=== PATIENT | female | born 1995 | race Caucasian/White ===

== ENCOUNTER 2023-08-02 12:53 | Inpatient (IN) | payer BC, OTHER, SELFPAY ==
[2023-08-02 12:58] VITALS: BP 119/78; PULSE 107; RESP 16; TEMP 36.9; O2SAT 100; BMI 37.5
--- NOTE | 2023-08-02 13:10 | CRLHL7_ITS ---
For Patients: As a result of the Century Cures Act, medical imaging exams and procedure reports are released immediately into your electronic medical record. You may view this report before your referring provider. If you have questions, please contact your health care provider. INDICATION: Pelvic Pain TECHNIQUE: Ultrasound pelvis transabdominal and transvaginal for better assessment or to better visualize the endometrium. Real-time sonographic images with spectral and color Doppler imaging of the ovaries were obtained. COMPARISON: None FINDINGS: Uterus: 7.7 x 5.0 x 5.2 cm. Normal echotexture of the myometrium. No masses. Endometrium: Transvaginal imaging was performed to better evaluate the endometrium. Endometrial thickness measures 7 mm. There is demonstration of an IUD in the lower uterine segment. Right ovary measures 4.4 x 3.2 x 3.5 cm and left ovary measures 7.1 x 4.3 x 4.0 cm. There is demonstration of a questionable mass adjacent to the uterine fundus and right adnexa. There is internal vascularity. Normal arterial and venous blood flow is demonstrated in both ovaries. Cul-de-sac: Minimal free fluid. IMPRESSION: Malpositioned IUD within the lower uterine segment. Demonstration of somewhat ill-defined right adnexal/periuterine mass/complex fluid collection for which additional follow-up with contrast-enhanced CT may be useful for improved characterization. Dictated by Rodrigo Mcgill MD @ 08/02/2023 2:58:06 PM (Electronically Signed)
--- NOTE | 2023-08-02 13:16 | ED.GENADULT ---
HPI - General Adult General Chief complaint: Abdominal Pain Stated complaint: From urgent care, need imaging Time Seen by Provider: 08/02/23 12:54 Source: patient Mode of arrival: ambulatory Limitations: no limitations History of Present Illness HPI narrative: 27-year-old female with history of MS and fibromyalgia presents with abdominal pain. Patient states that approximately 1 month ago she had similar symptoms of lower abdominal pain. She states that she was treated for which she believes was PID with doxy and Flagyl. She states that her pain did resolve however 2 days ago her pain returned. She describes it as a lower abdominal pain bilaterally without radiates up and into the entire abdomen. Movement makes it worse. Nothing seems to make it better. She does complain of increased urinary frequency and dysuria. She is currently menstruating. She has a ParaGard in place. She denies any changes to her bowel movements. She is sexually active with 1 sexual partner in states that she was tested for STDs 1 month ago and that was all negative. She denies any vaginal discharge. She does not in dorsal vomiting or nausea. She denies fevers or chills. States that her appetite is slightly less than normal but is still eating daily. Patient was seen in the urgent care today and white blood cell count came back elevated at just above 20,000. Chemistries were unremarkable, UA positive for blood which is expected given her current menstruation. Patient was sent to the ER for further imaging. Patient is on multiple psychiatric medications including Abilify, dextroamphetamine-amphetamine, hydroxyzine, prazosin, pregabalin, topiramate, venlafaxine. She is also on baclofen. She denies any intra-abdominal surgeries in the past. Related Data Home Medications Medication Instructions Recorded Confirmed aripiprazole 10 mg tablet 10 mg PO DAILY 08/02/23 08/02/23 baclofen 10 mg tablet 10 mg PO 3XD 08/02/23 08/02/23 dextroamphetamine-amphetamine 10 1 tab PO BID 08/02/23 08/02/23 mg tablet hydroxyzine pamoate 50 mg capsule 50 mg PO BID PRN 08/02/23 08/02/23 prazosin 2 mg capsule mg PO 08/02/23 08/02/23 pregabalin 200 mg capsule 200 mg PO BID 08/02/23 08/02/23 topiramate 50 mg tablet 50 mg PO 3XD 08/02/23 08/02/23 venlafaxine 150 mg 300 mg PO DAILY 08/02/23 08/02/23 capsule,extended release 24 hr venlafaxine 75 mg capsule,extended 75 mg PO DAILY 08/02/23 08/02/23 release 24 hr Allergies Allergy/AdvReac Type Severity Reaction Status Date / Time atomoxetine [From Strattera] Allergy Severe Verified 08/02/23 11:40 tetanus and diphtheria Allergy Severe Numbness Verified 08/02/23 11:40 toxoids Review of Systems Status of ROS: Reports: 10 or more systems reviewed and unremarkable except as noted in History and below [facility] Medical History Dysuria ?R30.0 - Dysuria (ICD-10) Abdominal pain ?R10.9 - Unspecified abdominal pain (ICD-10) Social History Non-prescribed substance use: denies use Exam Narrative: Exam Narrative: Obese patient in no acute distress. Alert and oriented x3. Answers questions appropriately. Mood and affect are appropriate. Thoughts are goal oriented and rational. No tangential or magical thinking noted. Patient speaks in full sentences without needing to catch her breath. HEENT: Normocephalic atraumatic. Pupils are equally round reactive to light. Extraocular muscles are intact. Conjunctivae are moist without any icterus noted. Moist mucous membranes. Posterior pharynx is normal. Neck is soft without any lymphadenopathy or thyromegaly. No masses are appreciated. Cardiovascular: Heart is regular rate and rhythm S1 and S2 are present without any murmurs. Lungs: Clear to auscultation bilaterally no wheezes rhonchi or rales are appreciated. Patient takes deep breaths without any discomfort. Abdomen: Technically difficult abdominal exam as patient moans in discomfort with just minimal light touch to the abdominal wall. She can be distracted. Deeper palpation does not reveal what appears to be worsening pain. I do not appreciate any masses. She complains of discomfort with any touch to any area of the abdomen. However, when I ask her to point to where she thinks the worst pain is she points to the suprapubic area and bilateral lower quadrants. She has normal bowel sounds. There is no peritoneal signs, the abdominal wall is not rigid or firm. Extremities: Bilateral lower extremities are without edema. Normal DP and PT pulses. Skin: Well perfused without any obvious rashes. Const: Vital Signs, click to edit/add: Vital Signs - 24 hr 08/02/23 12:58 Temperature 98.4 F Pulse Rate [Right Pulse Oximeter] 107 H Respiratory Rate 16 Blood Pressure [Ri ght Upper Arm] 119/78 Pulse Oximetry 100 Oxygen Delivery Me thod Room Air Course Course ED Course: Reviewed her CBC, chemistries and UA. Labs added included a CRP, lipase, urine test, urine culture. CRP was quite elevated. Remainder of lab work was unremarkable. Pelvic ultrasound was also ordered. This showed an ill-defined right adnexal mass. Therefore we did proceed with a CT scan. CT scan did show a probable abscess related to pelvic inflammatory disease. Did discuss the case with Dr. Bright who recommended a wet prep, repeat GC chlamydia now alert and admission for IV and doxycycline, Rocephin and Flagyl. Wet prep was obtained and sent to lab. Pupil at this time waiting for a round dirty urine sample from the patient to sent for GC/chlamydia. We did go ahead and start IV fluids and patient will be admitted at this time. Vital Signs Vital signs: Initial Vital Signs Temperature 98.4 F 08/02/23 12:58 Temperature Source Temporal Artery Scan 08/02/23 12:58 Pulse Rate 107 H 08/02/23 12:58 Pulse Rhythm Regular 08/02/23 12:58 Pulse Strength 3+ Normal 08/02/23 12:58 Respiratory Rate 16 08/02/23 12:58 Blood Pressure 119/78 08/02/23 12:58 Blood Pressure Mean 91 08/02/23 12:58 Blood Pressure Position Supine 08/02/23 12:58 Pulse Oximetry 100 08/02/23 12:58 Oxygen Delivery Method Room Air 08/02/23 12:58 Vital Signs Temperature 98.4 F 08/02/23 12:58 Pulse Rate 107 H 08/02/23 12:58 Respiratory Rate 16 08/02/23 12:58 Blood Pressure 119/78 08/02/23 12:58 Pulse Oximetry 100 08/02/23 12:58 Oxygen Delivery Method Room Air 08/02/23 12:58 Temperature 98.4 F 08/02/23 12:58 Pulse Rate 107 H 08/02/23 12:58 Respiratory Rate 16 08/02/23 12:58 Blood Pressure 119/78 08/02/23 12:58 Pulse Oximetry 100 08/02/23 12:58 Oxygen Delivery Method Room Air 08/02/23 12:58 Medical Decision Making MDM Narrative Medical decision making narrative: 27-year-old female with a potential Tubo-ovarian abscess. Patient will be admitted for management at this time. Lab Data Lab results reviewed: Yes I reviewed the patient's lab results Labs: Lab Results 08/02/23 08/02/23 Range/Units 13:26 13:35 Lactate 0.7 (0.5-1.9) mmol/L Total Bilirubin 0.7 (0.1-1.5) mg/dL Direct Bilirubin 0.0 (0.0-0.5) mg/dL AST 15 (12-35) U/L ALT 16 (4-35) U/L Alkaline Phosphatase 79 (40-150) U/L C-Reactive Protein 21.9 H (0.5-1.0) mg/dL Total Protein 7.5 (6.0-8.3) g/dL Albumin 3.8 (3.3-5.0) g/dL Lipase 11 L (23-300) U/L Urine HCG, Qual Negative (Negative) Imaging Data US - abdomen: Attestation: I have reviewed the pertinent imaging results. Radiologist's impression: Ultrasound pelvis transabdominal and transvaginal for better assessment or to better visualize the endometrium. Real-time sonographic images with spectral and color Doppler imaging of the ovaries were obtained. COMPARISON: None FINDINGS: Uterus: 7.7 x 5.0 x 5.2 cm. Normal echotexture of the myometrium. No masses. Endometrium: Transvaginal imaging was performed to better evaluate the endometrium. Endometrial thickness measures 7 mm. There is demonstration of an IUD in the lower uterine segment. Right ovary measures 4.4 x 3.2 x 3.5 cm and left ovary measures 7.1 x 4.3 x 4.0 cm. There is demonstration of a questionable mass adjacent to the uterine fundus and right adnexa. There is internal vascularity. Normal arterial and venous blood flow is demonstrated in both ovaries. Cul-de-sac: Minimal free fluid. IMPRESSION: Malpositioned IUD within the lower uterine segment. Demonstration of somewhat ill-defined right adnexal/periuterine mass/complex fluid collection for which additional follow-up with contrast-enhanced CT may be useful for improved characterization. CT scan - pelvis: Attestation: I have reviewed the pertinent imaging results. Radiologist's impression: Pelvic pain; pelvic mass on ultrasound. COMPARISON: Pelvic ultrasound August 02, 2023. TECHNIQUE: CT abdomen and pelvis with intravenous contrast; coronal and sagittal reformats. FINDINGS: No abnormal intra pulmonary nodular densities through the lung bases. No evidence of pleural effusion. Normal size cardiac silhouette without any pericardial effusion. No focal hepatic or splenic pathology. No pancreatic pathology. Gallbladder is unremarkable. Possible cholesterol stone. No adrenal pathology. No kidneys stones or obstructive uropathy. No retroperitoneal lymphadenopathy. Intrauterine contraceptive device in place. Complex mass identified behind the uterus to the left of the midline and evidence of peritonitis with a loculated fluid collections between the urinary bladder and the uterus. This findings most likely represent pelvic inflammatory disease possibly with an evolving abscess and complex fluid collection within the anterior cul-de-sac. No pneumoperitoneum or intestinal obstruction. IMPRESSION: Findings in the pelvis highly suggestive of pelvic inflammatory disease with fluid collection in the anterior cul-de-sac as well as a 4.6 x 3.6 centimeter complex mass behind the uterus to the left of the midline. Discharge Plan Discharge Clinical Impression: TOA (tubo-ovarian abscess) Patient Disposition: Admitted As Observation Condition: Stable Prescriptions: No Action baclofen 10 mg tablet 10 mg PO 3XD dextroamphetamine-amphetamine 10 mg tablet 1 tab PO BID venlafaxine 150 mg capsule,extended release 24hr 300 mg PO DAILY venlafaxine 75 mg capsule,extended release 24hr 75 mg PO DAILY hydroxyzine pamoate 50 mg capsule 50 mg PO BID PRN pregabalin 200 mg capsule 200 mg PO BID aripiprazole 10 mg tablet 10 mg PO DAILY topiramate 50 mg tablet 50 mg PO 3XD prazosin 2 mg capsule PO Follow Up/Referrals: Bentley Bowling MD [Primary Care Provider] -
[2023-08-02 13:31] LABS: Lactate* 0.7 mmol/L (0.5-1.9)
[2023-08-02 13:50] LABS: Ur HCG Qualitative* Negative (Negative)
[2023-08-02 13:51] LABS: Albumin* 3.8 g/dL (3.3-5.0)
[2023-08-02 13:54] LABS: Alanine Aminotransferase* 16 U/L (4-35); Alkaline Phosphatase* 79 U/L (40-150); Aspartate Amino Transferase* 15 U/L (12-35); Bilirubin Total* 0.7 mg/dL (0.1-1.5); Lipase* 11 U/L (23-300); Total Protein* 7.5 g/dL (6.0-8.3)
[2023-08-02 14:11] LABS: C Reactive Protein* 21.9 mg/dL (0.5-1.0)
--- NOTE | 2023-08-02 15:07 | CRLHL7_ITS ---
For Patients: As a result of the Century Cures Act, medical imaging exams and procedure reports are released immediately into your electronic medical record. You may view this report before your referring provider. If you have questions, please contact your health care provider. INDICATION: Pelvic pain; pelvic mass on ultrasound. COMPARISON: Pelvic ultrasound August 02, 2023. TECHNIQUE: CT abdomen and pelvis with intravenous contrast; coronal and sagittal reformats. FINDINGS: No abnormal intra pulmonary nodular densities through the lung bases. No evidence of pleural effusion. Normal size cardiac silhouette without any pericardial effusion. No focal hepatic or splenic pathology. No pancreatic pathology. Gallbladder is unremarkable. Possible cholesterol stone. No adrenal pathology. No kidneys stones or obstructive uropathy. No retroperitoneal lymphadenopathy. Intrauterine contraceptive device in place. Complex mass identified behind the uterus to the left of the midline and evidence of peritonitis with a loculated fluid collections between the urinary bladder and the uterus. This findings most likely represent pelvic inflammatory disease possibly with an evolving abscess and complex fluid collection within the anterior cul-de-sac. No pneumoperitoneum or intestinal obstruction. IMPRESSION: Findings in the pelvis highly suggestive of pelvic inflammatory disease with fluid collection in the anterior cul-de-sac as well as a 4.6 x 3.6 centimeter complex mass behind the uterus to the left of the midline. Please note that all CT scans at this facility use dose modulation, iterative reconstruction, and/or weight-based dosing when appropriate to reduce radiation dose to as low as reasonably achievable. Dictated by Rashel Briseno MD @ 08/02/2023 4:24:54 PM (Electronically Signed)
[2023-08-02] MEDS: IBUPROFEN 400 MG TABLET 800 MG PO (15:53)
[2023-08-02] MEDS: 0.9 % SODIUM CHLORIDE 1000 ml 1,000 ML IV (17:11)
[2023-08-02] MEDS: cefTRIAXone 1 GM in 0.9 % SODIUM CHLORIDE Mini-bag 100 ML IVPB (17:11)
[2023-08-02 17:14] LABS: Clue Cells No Clue Cells Seen (None Seen); Trichomonas No Trichomonas Seen (None Seen); Yeast No Yeast Seen (None Seen)
[2023-08-02] MEDS: metroNIDAZOLE 500 MG/100 ML PIGGYBACK 100 MG IVPB (17:16)
[2023-08-02] MEDS: DOXYCYCLINE HYCLATE 100 MG in 0.9 % SODIUM CHLORIDE Mini-bag 100 ML IVPB (17:17)
--- NOTE | 2023-08-02 17:52 | P.GYNHP_ITS ---
SOLAR ENERGY ADVISOR: H&P: HPI Surgical History of Present Illness Time Seen by Provider: 17:52 Date Seen: 08/02/23 Reason for admission: pelvic pain Last H&P: No Data to Display Narrative: Hammad Freeman is a 27 year old G0 seen for evaluation of PID with TOA. She presented to the ED on 08/02 following urgent care visit for pelvic pain, please see Dr. Gutierrez's note for complete details. Gynecology consult was requested in the setting of TVUS and CT A/P consistent with pelvic abscess, plan to admit to Gynecology. Hammad notes gradually worsening pelvic pain for about 4 days, becoming more diffuse with time. She notes similar pelvic pain 1 month ago, at which time she was evaluated and treated at [facility] for suspected PID with IM ceftriaxone and PO doxy/flagyl. She believes she had imaging to rule out an appendicitis at that time, where there was reportedly no acute pelvic pathology. Hammad notes her pain improved following treatment until about 4 days ago. Her pain is greatest across the lower abdomen, but she has had new diffuse abdominal pain as well. Pain is exacerbated with activity/movement, alleviated somewhat with ibuprofen. She endorses associated nasuea without vomiting. No fevers/chills, abnormal discharge. Hammad is sexually active with no new partners or known STI exposures. Describes her relationship status as polyamorous, and includes male and female partners. She utilizes Copper IUD for contraception, on her menstrual period now. Evaluation in the ED has included TVUS and CT A/P with findings consistent with pelvic abcess, impression below. WBC elevated to 20.94k, CRP 21.9. Past medical history: MS, fibromyalgia, mood disorder Past surgical history: No prior abdominal surgeries Social history: As above. TVUS Impression: Ultrasound pelvis transabdominal and transvaginal for better assessment or to better visualize the endometrium. Real-time sonographic images with spectral and color Doppler imaging of the ovaries were obtained. COMPARISON: None FINDINGS: Uterus: 7.7 x 5.0 x 5.2 cm. Normal echotexture of the myometrium. No masses. Endometrium: Transvaginal imaging was performed to better evaluate the endometrium. Endometrial thickness measures 7 mm. There is demonstration of an IUD in the lower uterine segment. Right ovary measures 4.4 x 3.2 x 3.5 cm and left ovary measures 7.1 x 4.3 x 4.0 cm. There is demonstration of a questionable mass adjacent to the uterine fundus and right adnexa. There is internal vascularity. Normal arterial and venous blood flow is demonstrated in both ovaries. Cul-de-sac: Minimal free fluid. IMPRESSION: Malpositioned IUD within the lower uterine segment. Demonstration of somewhat ill-defined right adnexal/periuterine mass/complex fluid collection for which additional follow-up with contrast-enhanced CT may be useful for improved characterization. CT A/P: Pelvic pain; pelvic mass on ultrasound. COMPARISON: Pelvic ultrasound August 02, 2023. TECHNIQUE: CT abdomen and pelvis with intravenous contrast; coronal and sagittal reformats. FINDINGS: No abnormal intra pulmonary nodular densities through the lung bases. No evidence of pleural effusion. Normal size cardiac silhouette without any pericardial effusion. No focal hepatic or splenic pathology. No pancreatic pathology. Gallbladder is unremarkable. Possible cholesterol stone. No adrenal pathology. No kidneys stones or obstructive uropathy. No retroperitoneal lymphadenopathy. Intrauterine contraceptive device in place. Complex mass identified behind the uterus to the left of the midline and evidence of periton itis with a loculated fluid collections between the urinary bladder and the uterus. This findings most likely represent pelvic inflammatory disease possibly with an evolving abscess and complex fluid collection within the anterior cul-de-sac. No pneumoperitoneum or intestinal obstruction. IMPRESSION: Findings in the pelvis highly suggestive of pelvic inflammatory disease with fluid collection in the anterior cul-de-sac as well as a 4.6 x 3.6 centimeter complex mass behind the uterus to the left of the midline. [facility] Medical History Dysuria ?R30.0 - Dysuria (ICD-10) Abdominal pain ?R10.9 - Unspecified abdominal pain (ICD-10) Social History Non-prescribed substance use: denies use Meds Home Medications and Allergies Home Medications Medication Instructions Recorded Confirmed Type aripiprazole 10 mg tablet 10 mg PO DAILY 08/02/23 08/02/23 History baclofen 10 mg tablet 10 mg PO 3XD 08/02/23 08/02/23 History dextroamphetamine-amphetamine 10 1 tab PO BID 08/02/23 08/02/23 History mg tablet hydroxyzine pamoate 50 mg capsule 50 mg PO BID PRN 08/02/23 08/02/23 History prazosin 2 mg capsule mg PO 08/02/23 08/02/23 History pregabalin 200 mg capsule 200 mg PO BID 08/02/23 08/02/23 History topiramate 50 mg tablet 50 mg PO 3XD 08/02/23 08/02/23 History venlafaxine 150 mg 300 mg PO DAILY 08/02/23 08/02/23 History capsule,extended release 24 hr venlafaxine 75 mg capsule,extended 75 mg PO DAILY 08/02/23 08/02/23 History release 24 hr Allergies Allergy/AdvReac Type Severity Reaction Status Date / Time atomoxetine [From Strattera] Allergy Severe Verified 08/02/23 11:40 tetanus and diphtheria Allergy Severe Numbness Verified 08/02/23 11:40 toxoids SOLAR ENERGY ADVISOR - Exam Physical Exam: Vital signs: Temp Pulse Resp BP Pulse Ox O2 Del Method 98.4 F 107 H 16 119/78 100 Room Air 08/02/23 12:58 08/02/23 12:58 08/02/23 12:58 08/02/23 12:58 08/02/23 12:58 08/02/23 12:58 Narrative: General: Well appearing. No acute distress. Psych: Alert and oriented x 3, full affect HEENT: Normocephalic, atraumatic Abdomen: Soft. Tenderness to palpation greatest across the low abdomen. No rebound or guarding. Pelvic exam: External genitalia within normal limits. Speculum exam notable for scant menstrual blood, no significant discharge. Cervix is pink, no erythema or purulence. IUD strings visualized, with base of the IUD itself noted at external os. IUD strings were grasped with a ring forceps and removed intact with gentle traction. Bimanual exam notable for significant cervical motion tenderness and right greater than left adnexal tenderness. SOLAR ENERGY ADVISOR - Results Labs Labs: Liver Function 08/02/23 Range/Units 13:26 Total Bilirubin 0.7 (0.1-1.5) mg/dL Direct Bilirubin 0.0 (0.0-0.5) mg/dL AST 15 (12-35) U/L ALT 16 (4-35) U/L Alkaline Phosphatase 79 (40-150) U/L Albumin 3.8 (3.3-5.0) g/dL Assessment and Plan Assessment and plan (1) TOA (tubo-ovarian abscess): Status: Acute (2) Abdominal pain: Status: Acute Plan Hammad is a 27yo G0 evaluated in the setting of TOA. Gynecologic history is notable for a recent episode of PID about 1 month ago. She notes recurrent pelvic pain for 4 days, now with more diffuse abdominal pain and nausea. Evaluation in the ED has included labs, notable for leukocytosis and elevated CRP. TVUS and CT A/P were obtained, revealing malpositioned IUD and evidence of a pelvic abscess/TOA likely involving the anterior cul-de-sac and 4.6 x 3.6cm c omplex mass behind the uterus. Lab evaluation is significant for infection by elevated WBC and CRP. My physical exam is notable for diffuse abdominal tenderness, greatest across the low abdomen with significant cervical motion and right adnexal tenderness on bimanual exam. She is afebrile and non-toxic in appearance, no concern for sepsis at this time. Plan to admit for IV antibiotic therapy, where IV ceftriaxone, doxycycline and flagyl have been initiated. Prior to doing so, ED providers did collect repeat GC/chlamydia (reportedly negative 1 month ago) and a wet mount. IUD was removed, given that this TOA is likely a result of suboptimal response to her prior episode of PID 1 month ago and malposition. We discussed the important of abstinence while we treat her pelvic infection and contraception moving forward. Options were extensively discussed, where Hammad wishes to avoid hormones given her concurrent mentral health conditions and feeling as though these have been worsened on contraception in the past. That said, her IUD insertion 5 years ago was very painful - thus we discussed methods for interval re-insertion of her IUD with improved pain control (placing during menses vs cytotec prep, paracervical block, anxiolytic therapy). She will consider her options futher and we will make a control plan prior to dismissal. I explained that if her condition does not improve with IV antibiotics (pain, nausea, leukocytosis, etc.) that transfer to a facility with IR capability for abscess aspriation and/or drainage may be required. Hammad expressed understanding and is agreeable to the above plan. - Admit to med/surg unit, Gynecolgoy service - Start IV ceftriaxone, doxycycline and flagyl for PID with TOA - Daily labs - Regular diet - Contraception plan prior to dismissal given IUD removal Jam Bright MD
[2023-08-02 18:22] VITALS: BP 111/73; PULSE 100; RESP 20; TEMP 37; O2SAT 100; BMI 38.5
[2023-08-02 18:48] LABS: Chlamydia DNA Amplified* NOT DETECTED (No Detected); GC DNA Amplified* NOT DETECTED (No Detected)
[2023-08-02] MEDS: OXYCODONE 5 MG TABLET PO ×2 (18:49→22:45)
[2023-08-02 19:00] VITALS: BP 111/75; PULSE 93; RESP 18; TEMP 36.9; O2SAT 93
[2023-08-02] MEDS: LACTATED RINGERS 1000 ML 1,000 ML 100 ML IV (19:12)
--- NOTE | 2023-08-02 19:39 | PC.NURSE ---
Shift Summary: Patient arrived to floor around 1820. Independent with ambulation, alert and oriented. Vitals stable with HR in low 100's. Rates pain 6/10 in lower abdomen, denies nausea. While doing admission patient stated she has some problems with family, verbalized that certain family members talk down to her, when asked if she would like to talk with medical social worker refused.
[2023-08-02] MEDS: ARIPiprazole 10 MG TABLET PO (21:54)
[2023-08-02] MEDS: hydrOXYzine pamoate 25 MG CAPSULE 50 MG PO (21:55)
[2023-08-02] MEDS: BACLOFEN 10 MG TABLET PO (21:55)
[2023-08-02] MEDS: PREGABALIN 100 MG CAPSULE 200 MG PO (21:55)
[2023-08-02] MEDS: IBUPROFEN 600 MG TABLET PO (21:55)
[2023-08-02] MEDS: TOPIRAMATE 50 MG TABLET PO (21:59)
[2023-08-02] MEDS: PRAZOSIN HCL 1 MG CAPSULE 2 MG PO (22:00)
[2023-08-02 23:00] VITALS: BP 99/66; PULSE 101; PULSE 93; RESP 18; TEMP 36.6; O2SAT 98
[2023-08-03] MEDS: metroNIDAZOLE 500 MG/100 ML PIGGYBACK 100 MG IVPB ×3 (00:58→17:30)
[2023-08-03 03:00] VITALS: PULSE 92; RESP 18; TEMP 36.7; O2SAT 98
[2023-08-03] MEDS: IBUPROFEN 600 MG TABLET PO ×4 (03:44→22:25)
[2023-08-03] MEDS: OXYCODONE 5 MG TABLET PO ×3 (03:44→14:19)
[2023-08-03] MEDS: LACTATED RINGERS 1000 ML 1,000 ML 100 ML IV (05:16)
[2023-08-03] MEDS: DOXYCYCLINE HYCLATE 100 MG in 0.9 % SODIUM CHLORIDE Mini-bag 100 ML IVPB ×2 (05:40→18:39)
--- NOTE | 2023-08-03 06:43 | PC.NURSE ---
End of Shift: Pt AO, pleasant and cooperative throughout shift. Reports pain between 5-6/10 in abdomen, with relief from ibuprofen and oxycodone. Pt slept well, waking up intermittently. IV remained patent, tolerated abx infusions well. LR running at 100cc/hr. Pt independent in room, continent with bladder, no BM throughout shift. Last BM reported 08/02/23 morning. VSS.
--- NOTE | 2023-08-03 07:26 | PM.GYNPNNOR ---
Progress Note: A&P Assessment and plan (1) TOA (tubo-ovarian abscess): Status: Acute Assessment and Plan: Persistent PID, now with tubo-ovarian abscess, despite recent treatment. IUD has since been removed by Dr. Bright yesterday. She has been afebrile since admission. Pain has improved. There is no big change in WBC indices; count has fallen slightly and neurophilia has diminished slightly. Will repeat CBC in AM. Continue ceftriaxone / doxy / metronidazole IV through Thursday = 72 hours. I favor 3 days of inpatient treatment due to her relative immunosuppression with monoclonal antibody for multiple sclerosis. (2) Multiple sclerosis: Status: Acute Assessment and Plan: Relatively immunosuppressed on monoclonal antibody. (3) Depression with anxiety: Status: Acute Assessment and Plan: Multiple psychiatric illnesses as noted. We are continuing her home medications. We did discuss additional measures for sleep. She has had suboptimal results with lorazepam in the past. We were going to trial Benadryl at HS, but she is currently prescribed hydroxyzine. I will recommend one or the other tonight. (4) ADHD: Status: Acute (5) Autistic spectrum disorder: Status: Acute (6) OCD (obsessive compulsive disorder): Status: Acute ROLL PLUGGER MACHINE OPERATOR- PN:Subj Non-OR Subjective Date Seen: 08/03/23 Interval history: Hammad is a 27-year-old G0 woman on hospital day 2 after admission for tubo-ovarian abscess. She has been maintained on ceftriaxone, doxycycline and Flagyl since day of admission. Hammad reports some decrease in pain. She has a little bit of nausea, but no vomiting. She is tolerating a regular diet. Overall, she feels slightly better than at time of admission. Her medical history is notable for multiple sclerosis. She is receiving ocrelizumab infusions for treatment; this is a monoclonal antibody. This could increase her risk of severe infection. She also has poorly controlled psychiatric illness. Depression, anxiety, autistic spectrum disorder, ADHD, and OCD. She is tearful this morning. She had long weighted appointments with Neurology and Psychiatry pending, but she will not be able to attend these due to her current hospitalization. She has been having difficulty sleeping these last few nights due to pain. ROLL PLUGGER MACHINE OPERATOR-PN: Obj Exam Physical Exam: Vital signs: Temp Pulse Resp BP Pulse Ox O2 Del Method 98.1 F 92 18 99/66 98 Room Air 08/03/23 03:00 08/03/23 03:00 08/03/23 03:00 08/02/23 23:00 08/03/23 03:00 08/03/23 03:00 Narrative: General: Pleasant, no acute distress, tearful when discussing missed appointments Heart: Regular rate and rhythm, no murmur or gallop Lungs: Clear to auscultation bilaterally Abdomen: Normoactive bowel sounds in all 4 quadrants, soft, no distension, rebound, or guarding, mild to moderate tenderness to palpation in left and right lower quadrants Lower extremities: SCDs in place ROLL PLUGGER MACHINE OPERATOR - PN: Obj Data Labs Labs: Laboratory Results - last 24 hr 08/02/23 08/02/23 08/02/23 13:26 13:35 17:03 Lactate 0.7 Total Bilirubin 0.7 Direct Bilirubin 0.0 AST 15 ALT 16 Alkaline Phosphatase 79 C-Reactive Protein 21.9 H Total Protein 7.5 Albumin 3.8 Lipase 11 L Urine HCG, Qual Negative Vaginal Trichomonas Vaginal Yeast Vaginal Clue Cells C.trachomatis Ampl DNA NOT DETECTED N.gonorrhoeae Ampl DNA NOT DETECTED 08/02/23 Unknown Lactate Total Bilirubin Direct Bilirubin AST ALT Alkaline Phosphatase C-Reactive Protein Total Protein Albumin Lipase Urine HCG, Qual Vaginal Trichomonas No Trichomonas Seen Vaginal Yeast No Yeast Seen Vaginal Clue Cells No Clue Cells Seen C.trachomatis Ampl DNA N.gonorrhoeae Ampl DNA CBC 08/02/2023: WBC 20.94, relative neutrophilia at 85.3%, hemoglobin 12.1 This morning: WBC 18.86, hemoglobin 10.6, relative neutrophilia at 79.8%
[2023-08-03 07:47] LABS: Basophils Percent Auto 0.2 % (0.0-3.0); Hemoglobin* 10.6 gm/dL (12.0-16.0); Immature Granulocytes Pct Auto 0.3 %; Lymphocytes Percent Auto 8.5 % (20-44); Mean Corpuscular HGB Conc 33 gm/dL (32-36); Mean Corpuscular Hemoglobin 30 pg (26-34); Mean Corpuscular Volume 92 fL (80-100); Monocytes Percent Auto 10.2 % (0.0-11.0); Neutrophils Percent Auto 79.8 % (42.0-72.0); Platelet Count* 315 K/uL (140-440); RDW Coefficient of Variation % 13.4 % (11.5-15.5); Red Blood Count 3.49 m/uL (4.00-5.20); White Blood Count* 18.86 K/uL (4.50-11.00)
[2023-08-03 07:48] LABS: Slide Review Reflex No
[2023-08-03 08:16] LABS: C Reactive Protein* 25.5 mg/dL (0.5-1.0)
[2023-08-03 08:25] VITALS: BP 114/76; PULSE 72; RESP 18; TEMP 36.8; O2SAT 96
[2023-08-03] MEDS: BACLOFEN 10 MG TABLET PO ×3 (08:54→20:55)
[2023-08-03] MEDS: VENLAFAXINE ER 75 MG CAPSULE 375 MG PO (08:54)
[2023-08-03] MEDS: PREGABALIN 100 MG CAPSULE 200 MG PO ×2 (09:30→21:11)
[2023-08-03] MEDS: TOPIRAMATE 50 MG TABLET PO ×3 (09:31→20:55)
[2023-08-03] MEDS: hydrOXYzine pamoate 25 MG CAPSULE 50 MG PO ×2 (09:32→15:47)
[2023-08-03 10:48] VITALS: BP 106/49; PULSE 100; RESP 16; TEMP 36.8; O2SAT 96
[2023-08-03 15:51] VITALS: BP 104/74; PULSE 101; RESP 16; TEMP 36.8; O2SAT 96
[2023-08-03] MEDS: cefTRIAXone 1 GM in 0.9 % SODIUM CHLORIDE Mini-bag 100 ML IVPB (16:37)
--- NOTE | 2023-08-03 17:22 | PC.NURSE ---
Patient is alert and orientated.. up ad juancarlos in her room. Reports constant pressur ein lower abdomen throughout the shift. PRN oxy given 2x with adequate relief. Here for IV ABX for PID. Has allergies to gluten, lactose, and bananas. Patient is calm and pleasant. Iv in R hand.
[2023-08-03 19:00] VITALS: BP 92/61; PULSE 91; RESP 16; TEMP 36.8; O2SAT 97
[2023-08-03] MEDS: ARIPiprazole 10 MG TABLET PO (20:56)
[2023-08-03] MEDS: PRAZOSIN HCL 1 MG CAPSULE 2 MG PO (20:56)
[2023-08-03 23:00] VITALS: BP 117/74; PULSE 91; RESP 16; TEMP 36.7; O2SAT 98
[2023-08-04] VITALS (7 sets, daily range): BP systolic 96–109; BP diastolic 61–74; PULSE 76–102; RESP 12–20; TEMP 36.5–37.7; O2SAT 96–100
[2023-08-04] MEDS: hydrOXYzine pamoate 25 MG CAPSULE 50 MG PO ×4 (01:17→23:14)
[2023-08-04] MEDS: metroNIDAZOLE 500 MG/100 ML PIGGYBACK 100 MG IVPB ×3 (01:17→17:35)
[2023-08-04] MEDS: OXYCODONE 5 MG TABLET PO (01:20)
[2023-08-04] MEDS: IBUPROFEN 600 MG TABLET PO ×4 (04:32→21:04)
[2023-08-04] MEDS: DOXYCYCLINE HYCLATE 100 MG in 0.9 % SODIUM CHLORIDE Mini-bag 100 ML IVPB ×2 (06:16→18:39)
--- NOTE | 2023-08-04 06:47 | PC.NURSE ---
End of Shift: Pt pleasant and cooperative throughout shift, remained AO. Pain well controlled with scheduled ibuprofen and PRN oxycodone. Pt remains independent, continent with bowel and bladder. Denied any SOB, LS CTAB. VSS. IV patent.
[2023-08-04 07:15] LABS: Basophils Percent Auto 0.1 % (0.0-3.0); Eosinophils Percent Auto 1.1 % (0.0-7.0); Hematocrit 32.3 % (33.0-51.0); Hemoglobin* 10.7 gm/dL (12.0-16.0); Immature Granulocytes Pct Auto 0.7 %; Lymphocytes Percent Auto 8.2 % (20-44); Mean Corpuscular HGB Conc 33 gm/dL (32-36); Mean Corpuscular Hemoglobin 30 pg (26-34); Mean Corpuscular Volume 92 fL (80-100); Monocytes Percent Auto 9.8 % (0.0-11.0); Neutrophils Percent Auto 80.1 % (42.0-72.0); Platelet Count* 329 K/uL (140-440); RDW Coefficient of Variation % 13.4 % (11.5-15.5); Red Blood Count 3.52 m/uL (4.00-5.20); White Blood Count* 17.42 K/uL (4.50-11.00)
[2023-08-04 07:16] LABS: Slide Review Reflex No
--- NOTE | 2023-08-04 08:46 | PM.GYNPNNOR ---
Progress Note: A&P Assessment and plan (1) TOA (tubo-ovarian abscess): Status: Acute Assessment and Plan: Persistent PID, now with tubo-ovarian abscess, despite recent treatment. IUD has since been removed by Dr. Bright yesterday. She has been afebrile since admission. Pain has improved. WBC indices slowly improving; count continues to decrease and neutrophilia has diminished slightly. Will repeat CBC in AM. Continue ceftriaxone / doxy / metronidazole IV through Thursday = 72 hours. Favor 3 days of inpatient treatment due to her relative immunosuppression with monoclonal antibody for multiple sclerosis. Consider referral for Interventional Radiology drainage of abscess versus extended po antibiotics following discharge. (2) Multiple sclerosis: Status: Acute Assessment and Plan: Relatively immunosuppressed on monoclonal antibody. (3) Depression with anxiety: Status: Acute Assessment and Plan: Multiple psychiatric illnesses as noted. We are continuing her home medications. (4) ADHD: Status: Acute (5) Autistic spectrum disorder: Status: Acute (6) OCD (obsessive compulsive disorder): Status: Acute NEUROLOGY EPILEPSY PHYSICIAN- PN:Subj Non-OR Subjective Time Seen by Provider: 08:15 Date Seen: 08/04/23 Interval history: Hammad is a 27-year-old G0 woman on hospital day 3 after admission for tubo-ovarian abscess. She has been maintained on ceftriaxone, doxycycline and Flagyl since day of admission. Hammad reports decrease in pain. Residual pain yet in the left lower abdomen rather than diffuse across low abdomen. She has a little bit of nausea, but no vomiting. She is tolerating a regular diet. Her medical history is notable for multiple sclerosis. She is receiving ocrelizumab infusions for treatment; this is a monoclonal antibody. This could increase her risk of severe infection. She also has poorly controlled psychiatric illness. Depression, anxiety, autistic spectrum disorder, ADHD, and OCD. She is tearful this morning. She had long weighted appointments with Neurology and Psychiatry pending, but she will not be able to attend these due to her current hospitalization. NEUROLOGY EPILEPSY PHYSICIAN-PN: Obj Exam Physical Exam: Vital signs: Temp Pulse Resp BP Pulse Ox O2 Del Method 97.7 F 85 16 102/70 100 Room Air 08/04/23 07:58 08/04/23 07:58 08/04/23 07:58 08/04/23 07:58 08/04/23 07:58 08/04/23 07:58 Constitutional: Constitutional: no acute distress Routine Respiratory Exam: Comments: Normal respiratory effort. Routine Abdominal Exam: Abdominal: Present tenderness (LLQ) NEUROLOGY EPILEPSY PHYSICIAN - PN: Obj Data Labs Labs: Laboratory Results - last 24 hr 08/04/23 06:26 WBC 17.42 H RBC 3.52 L Hgb 10.7 L Hct 32.3 L MCV 92 MCH 30 MCHC 33 RDW Coeff of Pako 13.4 Plt Count 329 Neut % (Auto) 80.1 H Lymph % (Auto) 8.2 L [place] % (Auto) 9.8 Eos % (Auto) 1.1 Baso % (Auto) 0.1 Neut # (Auto) 14.00 H Lymph # (Auto) 1.40 [place] # (Auto) 1.70 H Eos # (Auto) 0.20 Baso # (Auto) 0.00 Abs Immat Gran (auto) 0.10 Imm/Tot Granulo (auto) 0.7
[2023-08-04] MEDS: VENLAFAXINE ER 75 MG CAPSULE 375 MG PO (09:06)
[2023-08-04] MEDS: TOPIRAMATE 50 MG TABLET PO ×3 (09:06→21:07)
[2023-08-04] MEDS: BACLOFEN 10 MG TABLET PO ×3 (09:06→21:04)
[2023-08-04] MEDS: PREGABALIN 100 MG CAPSULE 200 MG PO ×2 (09:14→21:09)
[2023-08-04] MEDS: cefTRIAXone 1 GM in 0.9 % SODIUM CHLORIDE Mini-bag 100 ML IVPB (16:43)
--- NOTE | 2023-08-04 18:18 | PC.NURSE ---
End of Shift: Patient pleasant and cooperative. Patient vitally stable, lungs clear, BS WNL, IV SL and intact. Patient rates pain 3-4/10, scheduled pain meds given. Patient tolerating regular diet. Patient urinating, no BM.
[2023-08-04] MEDS: PRAZOSIN HCL 1 MG CAPSULE 2 MG PO (21:05)
[2023-08-04] MEDS: ARIPiprazole 10 MG TABLET PO (21:05)
[2023-08-05] MEDS: metroNIDAZOLE 500 MG/100 ML PIGGYBACK 100 MG IVPB ×3 (02:13→18:01)
[2023-08-05 04:00] VITALS: BP 108/71; PULSE 82; RESP 18; TEMP 36.6; O2SAT 99
[2023-08-05] MEDS: IBUPROFEN 600 MG TABLET PO ×3 (04:05→15:37)
[2023-08-05] MEDS: DOXYCYCLINE HYCLATE 100 MG in 0.9 % SODIUM CHLORIDE Mini-bag 100 ML IVPB (06:07)
[2023-08-05 07:15] LABS: Basophils Percent Auto 0.1 % (0.0-3.0); Hematocrit 30.7 % (33.0-51.0); Hemoglobin* 10.2 gm/dL (12.0-16.0); Immature Granulocytes Pct Auto 1.4 %; Lymphocytes Percent Auto 6.6 % (20-44); Mean Corpuscular HGB Conc 33 gm/dL (32-36); Mean Corpuscular Hemoglobin 30 pg (26-34); Mean Corpuscular Volume 90 fL (80-100); Monocytes Percent Auto 10.5 % (0.0-11.0); Neutrophils Percent Auto 80.4 % (42.0-72.0); Platelet Count* 348 K/uL (140-440); RDW Coefficient of Variation % 13.2 % (11.5-15.5); Red Blood Count 3.41 m/uL (4.00-5.20); White Blood Count* 15.94 K/uL (4.50-11.00)
[2023-08-05 07:21] LABS: Slide Review Reflex No
[2023-08-05] MEDS: hydrOXYzine pamoate 25 MG CAPSULE 50 MG PO ×2 (07:39→15:37)
[2023-08-05 07:45] VITALS: BP 101/69; PULSE 95; RESP 18; TEMP 36.5; O2SAT 96
--- NOTE | 2023-08-05 07:48 | PC.NURSE ---
Addendum entered by Holly Medrano RN 08/05/23 08:00: NO FLUID RESTRICTION ON THIS PATIENT. Original Note: END OF SHIFT NOTE: PT PLEASANT AND COOPERATIVE. A&Ox3. DENIES CP, SOB, N/V. AMBULATES WITHIN ROOM INDEPENDENTLY. VSS ON RA (SOFT SBP); AFEBRILE. PT RATES ABD PAIN 2-4/10 WITH RELIEF WITH SCHEDULED PAIN RELIEVER. PT C/O SENSATION OF NEEDING TO VOID MORE AFTER EMPTYING BLADDER; PRN BLADDER SCAN FOR 26ML RESIDUAL AMOUNT. 2000ML DAILY FLUID RESTRICTION. CALL LIGHT WITHIN PT?S REACH.?
--- NOTE | 2023-08-05 07:49 | CRLHL7_ITS ---
For Patients: As a result of the Century Cures Act, medical imaging exams and procedure reports are released immediately into your electronic medical record. You may view this report before your referring provider. If you have questions, please contact your health care provider. INDICATION: Reassess pelvic abscess. TECHNIQUE: CT abdomen and pelvis acquired with 100 cc Isovue 370 IV contrast. COMPARISON: 08/02/2023. FINDINGS: Lower chest: Mild dependent atelectasis in the visualized lung bases. Liver: Hepatomegaly, otherwise unremarkable. No suspicious masses. Gallbladder and bile ducts: Unremarkable. No stones or inflammation. No biliary dilatation. Pancreas: Unremarkable. No mass or inflammation. Spleen: Unremarkable. Normal in size. No masses. Adrenal glands: Unremarkable. No nodules. Kidneys: Unremarkable. No suspicious masses, stones, or hydronephrosis. GI tract: Unremarkable. Normal in caliber. No sign of mass or inflammation. Normal appendix. Vasculature: Abdominal aorta is normal in caliber. Mesenteric arteries are patent. Lymph nodes: Scattered subcentimeter retroperitoneal lymph nodes, likely reactive. Peritoneum/Abdominal Wall: No pneumoperitoneum. Pelvis: Interval removal of the intrauterine device. There has been interval increase in size of the fluid collection anterior to the uterus which measures 8.4 x 5.0 cm in axial dimensions, previously 6.8 x 1.8 cm. Additionally, there is re- demonstration of a heterogeneous collection/mass which appears inferior and posterior to the left ovary, which measures 4.2 x 3.6 cm on today`s study, similar. Diffuse bladder wall thickening, which may be reactive versus secondary to the adjacent pelvic fluid collections. Similar pelvic inflammatory stranding Bones: Unremarkable for age. IMPRESSION: 1. Interval IUD removal. 2. Increase in size the fluid collection/abscess anterior to the uterus with significant pelvic inflammatory stranding. Similar appearance of the complex fluid collection/mass within the cul-de-sac. Please note that all CT scans at this facility use dose modulation, iterative reconstruction, and/or weight-based dosing when appropriate to reduce radiation dose to as low as reasonably achievable. Dictated by Siomna Vera MD @ 08/05/2023 10:50:12 AM (Electronically Signed)
[2023-08-05 08:00] VITALS: PULSE 95; RESP 18
--- NOTE | 2023-08-05 08:02 | PM.GYNPNNOR ---
Progress Note: A&P Assessment and plan (1) TOA (tubo-ovarian abscess): Status: Acute (2) Abdominal pain: Status: Acute (3) Multiple sclerosis: Status: Acute (4) Depression with anxiety: Status: Acute (5) ADHD: Status: Acute (6) Autistic spectrum disorder: Status: Acute (7) OCD (obsessive compulsive disorder): Status: Acute Plan Ms. Freeman is a 27yo G0 seen on hospital day 4 for tubo-ovarian abscess. Clinical improvement has been slow, including improving pain and nausea however these do still persist (to a lesser degree) with activity. She has been managing pain with NSAIDs and tylenol alone overnight. Her leukocytosis has shown improvement, from a peak of 20.9 on admission to 15.9 today. Still, her clinical response to IV ceftriaxone, doxycyline and flagyl has been slower than anticipated. Recommend we proceed with repeat CT A/P to assess interval response of the pelvic abscess. If enlarging, recommend transfer for likely aspiration/drainage with IR. If stable/decreasing in size, recommend ongoing IV antibiotic therapy. I reviewed that we would be recommended to transfer to PO antibiotics with clear clinical improvement and a normal leukocytosis. This is particularly important in her relatively immunocompromised state, with ocrevuz therapy for her MS. I would not advise transition to PO antibiotics today, however this could be considered in the coming days pending her repeat CT A/P and WBC count. Patient is understandably frustrated at slow progress but in agreement with plan. - NPO pending repeat CT A/P this morning - Continue IV ceftriaxone, doxycycline and flagyl - Daily WBC - Clinical exam is improving, pain control with ibuprofen/tylenol and oxycodone PRN (none needed overnight) THERMITE WELDER- PN:Subj Non-OR Subjective Time Seen by Provider: 07:45 Date Seen: 08/05/23 Interval history: Hammad is a 27-year-old G0 woman on hospital day 4 after admission for tubo-ovarian abscess. She has been maintained on ceftriaxone, doxycycline and Flagyl since day of admission. PMHx includes MS (on ocrelizumab) and psychiatric conditions. Hammad is feeling better overall since her hospitalization. She notes decreased abdominal pain and nausea. She notes at rest, pain is absent to 3/10 in severity and primarily localized to the LLQ. With ambulation, she notes increased pain and nausea without vomiting. Tolerating PO diet. No bowel or bladder concerns. She notes being discouraged at her slow improvement this morning, no acute mood concerns. THERMITE WELDER-PN: Obj Exam Physical Exam: Vital signs: Temp Pulse Resp BP Pulse Ox O2 Del Method 97.8 F 82 18 108/71 99 Room Air 08/05/23 04:00 08/05/23 04:00 08/05/23 04:00 08/05/23 04:00 08/05/23 04:00 08/05/23 04:00 Narrative: General: No acute distress Psych: Alert and oriented x 3, full affect HEENT: Normocephalic, atraumatic Abdomen: Soft, tender to palpation greatest in the LLQ but mild throughout abdomen. No rebound or guarding. VS reviewed and are within normal limits. Improvement in tachycardia noted. Labs notable for small improvement in her leukocytosis - WBC 15.9 today from 17.4. THERMITE WELDER - PN: Obj Data Labs Labs: Laboratory Results - last 24 hr 08/05/23 06:42 WBC 15.94 H RBC 3.41 L Hgb 10.2 L Hct 30.7 L MCV 90 MCH 30 MCHC 33 RDW Coeff of Pako 13.2 Plt Count 348 Neut % (Auto) 80.4 H Lymph % (Auto) 6.6 L [place] % (Auto) 10.5 Eos % (Auto) 1.0 Baso % (Auto) 0.1 Neut # (Auto) 12.80 H Lymph # (Auto) 1.10 [place] # (Auto) 1.70 H Eos # (Auto) 0.20 Baso # (Auto) 0.00 Abs Immat Gran (auto) 0.20 Imm/Tot Granulo (auto) 1.4
[2023-08-05] MEDS: BACLOFEN 10 MG TABLET PO ×2 (10:15→14:20)
[2023-08-05] MEDS: PREGABALIN 100 MG CAPSULE 200 MG PO (10:15)
[2023-08-05] MEDS: VENLAFAXINE ER 75 MG CAPSULE 375 MG PO (10:15)
[2023-08-05] MEDS: TOPIRAMATE 50 MG TABLET PO ×2 (10:20→14:20)
--- NOTE | 2023-08-05 12:30 | PM.GYNDS1 ---
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 Past medical history significant for multiple sclerosis (on Ocrevus), recent episode of PID, autism spectrum disorder, ADHD, OCD, depression anxiety. Gynecologic history is notable for an episode of PID about 1 month ago, where she received outpatient course of ceftriaxone and doxycycline and Flagyl. She returned to care on 08/02 in the setting of recurrent pelvic and abdominal pain with new nausea. Evaluation was notable for significant leukocytosis (20.9 on 08/02) and elevated CRP. Transvaginal ultrasound was obtained and revealed malposition IUD in the lower uterine segment, questionable left adnexal mass and questionable periuterine/right adnexal complex fluid collection. CT abdomen/pelvis subsequently revealed 4.6cm x 3.6cm complex mass in the left/posterior cul-de-sac with loculated fluid in the anterior cul-de-sac and peritonitis. Abdominal exam was notable for diffuse abdominal pain, greatest across the low abdomen. Bimanual exam notable for cervical motion tenderness and right>left adnexal tenderness. IUD was removed in the setting of malposition/near expulsion and recurrent PID. Patient was admitted on 08/02 and initiated on IV ceftriaxone, doxycycline and flagyl. She notes moderate improvement in her abdominal pain and nausea throughout course, however both of these recurred with movement. Her WBC modestly improved each day, from 20.9 on admission to 15.[address] A/P was performed given suboptimal response to therapy, where interval enlargement of the pelvic abscess was noted. Specifically, the retrouterine/left adnexal mass was noted to be unchanged but the anterior fluid collection was found to be 8.4 x 5cm from 6.8 x 1.8cm (previously unmeasured). She remained afebrile and hemodynamically stable throughout, with resolution of tachycardia on 08/05 (though patient notes mild tachycardia is her baseline). Recommend transfer of care to tertiary care center, specifically for CT vs US guided drainage of her known pelvic abscess. Patient expressed understanding and is in agreement with plan of care. She has been NPO since midnight. Report given to accepting physician, Dr. Mota at [facility]. Their radiology team has reviewed our imaging and intend to proceed with drain placement, hopefully this evening. Patient expressed understanding and is agreeable to plan. Time Spent with Patient Time attestation: Total time spent providing and/or coordinating discharge services: Time spent: Greater than 30 minutes FOREIGN COLLECTION CLERK - Exam Physical Exam: Vital signs: Temp Pulse Resp BP Pulse Ox O2 Del Method 97.8 F 82 18 108/71 99 Room Air 08/05/23 04:00 08/05/23 04:00 08/05/23 04:00 08/05/23 04:00 08/05/23 04:00 08/05/23 04:00 Narrative: General: Alert and oriented, in no acute distress Psych: Appropriate mood and affect. FOREIGN COLLECTION CLERK - DS: Data Data Completed and Pending Labs on day of discharge: Labs from last 24 hours 08/05/23 06:42 WBC 15.94 H RBC 3.41 L Hgb 10.2 L Hct 30.7 L MCV 90 MCH 30 MCHC 33 RDW Coeff of Pako 13.2 Plt Count 348 Neut % (Auto) 80.4 H Lymph % (Auto) 6.6 L [place] % (Auto) 10.5 Eos % (Auto) 1.0 Baso % (Auto) 0.1 Neut # (Auto) 12.80 H Lymph # (Auto) 1.10 [place] # (Auto) 1.70 H Eos # (Auto) 0.20 Baso # (Auto) 0.00 Abs Immat Gran (auto) 0.20 Imm/Tot Granulo (auto) 1.4 Discharge Plan Discharge Disposition: [facility] Date of Admission: 08/02/23 20:36 Attending Provider on Discharge: Roselyn Bright Primary Care Provider: Bentley Bowling Condition: Stable Oxygen: No Urinary Catheter: No
[2023-08-05 13:00] VITALS: BP 104/68; PULSE 104; RESP 18; TEMP 36.7; O2SAT 96
[2023-08-05 15:00] VITALS: BP 103/70; PULSE 88; RESP 20; TEMP 36.8; O2SAT 97
[2023-08-05] MEDS: cefTRIAXone 1 GM in 0.9 % SODIUM CHLORIDE Mini-bag 100 ML IVPB (17:06)
--- NOTE | 2023-08-05 19:22 | PC.NURSE ---
transfer: Patient alert and oriented, afebrile, independent in room. Updated MD on anticipated transfer time and MD approved advance to regular diet. Transferred at 18:20 to [facility] via [facility] with all personal belongings. Flagyl running prior to transfer and continued with EMS transfer.
== END 2023-08-05 18:20 | disposition short-term general hospital (02) | DRG 531 ==
LOC: ED 16:54 → MEDSURG 18:19
PROVIDERS: Obstetrics & Gynecology; Admitting Provider Obstetrics & Gynecology; Emergency Provider Family Medicine; PCP Surgery; Visit Provider Obstetrics & Gynecology
DX: N70.03 Acute salpingitis and oophoritis (principal); T83.32XA Displacement of intrauterine contraceptive device, initial encounter; N73.9 Female pelvic inflammatory disease, unspecified; R10.2 Pelvic and perineal pain; R10.32 Left lower quadrant pain; G35 Multiple sclerosis; M79.7 Fibromyalgia; F41.8 Other specified anxiety disorders; F90.9 Attention-deficit hyperactivity disorder, unspecified type; F84.0 Autistic disorder; F42.9 Obsessive-compulsive disorder, unspecified
CPT/HCPCS: 36415; 51798; 74177; 76830; 80076; 81025; 83605; 83690; 85025; 86140; 87086; 87210; 87491; 87591; 93976; 99285; A9270; J0696; J7030; J7120; Q9967; S0030

== ENCOUNTER 2023-08-05 18:12 | Outpatient (CLI) | payer BC, OTHER, SELFPAY | END 2023-08-05 18:13 | disposition home or self-care (01) | PROVIDERS: PCP Surgery; Visit Provider Family Medicine | DX: R10.9 Unspecified abdominal pain (principal) | CPT/HCPCS: A0425; A0428 ==

== ENCOUNTER 2025-02-28 09:30 | Outpatient (RCR) | payer BC, OTHER, SELFPAY | END 2025-04-04 10:31 | disposition home or self-care (01) | PROVIDERS: PCP Surgery; Visit Provider Surgery | DX: G35 Multiple sclerosis (principal); Z51.89 Encounter for other specified aftercare | CPT/HCPCS: 97110; 97140; 97161 ==

== ENCOUNTER 2025-02-28 10:49 | Outpatient (CLI) | payer BC, OTHER, SELFPAY ==
[2025-02-28 15:58] LABS: Vitamin D 25 Hydroxy* 30 ng/mL (30-80)
[2025-03-01 22:19] LABS: Hepatitis B Core Antibodies Negative (Negative)
[2025-03-02 08:22] LABS: QuantiFERON Mitogen minus NIL 9.84 IU/mL; QuantiFERON NIL 0.16 IU/mL; Quantiferon Plus TB1 minus NIL 0.02 IU/mL (<=0.34); Quantiferon TB Gold Plus Negative (Negative)
== END 2025-02-28 10:50 | disposition home or self-care (01) ==
LOC: NPINS 10:50
PROVIDERS: PCP Surgery; Visit Provider Physician Assistant
DX: G35 Multiple sclerosis (principal); E55.9 Vitamin D deficiency, unspecified
CPT/HCPCS: 82306; 86355; 86356; 86480; 86704; 86711

== ENCOUNTER 2025-07-12 15:50 | Outpatient (CLI) | payer BC, OTHER, SELFPAY ==
[2025-07-15 16:47] LABS: HSV 1 Subtype by PCR Not Detected; HSV 2 Subtype by PCR Detected; Herpes Simplex Subtype Source Tissue
== END 2025-07-12 15:51 | disposition home or self-care (01) ==
LOC: NFLDUCREF 16:12
PROVIDERS: PCP Surgery
DX: J38.7 Other diseases of larynx (principal)
CPT/HCPCS: 87529

== ENCOUNTER 2025-07-14 22:17 | Emergency (ER) | payer BC, OTHER, SELFPAY ==
--- OUTSIDE RECORDS SUMMARY | 2021-12-12 11:12 | XMS_ITS | Continuity of Care Document ---
Author Organization [facility] to[facility] Address [address] [place] [address] [place] [address] Phone Care Team Providers Care Tape Calender Name Role Phone Will MD PENALOZA, Jered Unavailable Unavailabl e Allergies, Adverse Reactions, Alerts Substance Reaction Status Criticality banana throat swelling/soreness Active No Information gluten intestinal distress Active No Infor mation TETANUS TOXOID,FLUID parasthesias Active No Info rmation Medications Medication Instructions Dosage Effective Dates (start - stop) Status Comments Lyrica 75 mg capsule take 1 capsule by oral route 2 times every day 75 MG - Active Failed gabapenti n Vistaril 25 mg capsule take 1 - 2 capsule by oral route in the morning and at bedtime - Active sertraline 100 mg tablet take 1 tablet by oral route every day 100 MG - Active gabapentin 300 mg capsule take 1 capsule by ORAL route 2 - 3 times every day - Active Procedures Procedure Date OFFICE/OUTPATIENT VISIT, EST OFFICE CONSULTATION Advance Directives Directive Yes / No Effective Date File Name No Information Encounters Encounter Description Practice Location Reason(s) For Visit Diagnoses Date Provider Providers Copied on Encounter [facility], [address] [facility] [address] [place], [place], [id number] , [place] tel:[phone] [facility] [place] No Information 2 Will Jered. [address] [place], [place], [id number], [place]. tel:[phone] OFFICE/OUTPAT IENT VISIT, EST [facility], [address] [place], [id number] , [place] tel:[phone] [facility] [place] Widespread pain (chief complaint) Multiple sclerosisLow back painCervicalgiaOt her muscle spasmOther hereditary and idiopathic neuropathies 8 Eusebio Gil. [address] [facility] [place], [id number], [place]. tel:[phone] Referring Provider: Bentley Bowling [facility] [address] [place], [address]. tel:[phone] OFFICE CONSULTATION [facility], [address] [facility] [address] [place], [id number] , [place] [phone] [facility] Widespread pain (chief complaint) Low back painCervicalgiaOt her muscle spasmMyalgiaMulti ple sclerosis 8 Darell Ba. [address] [facility] [place], [address], [place]. tel:[phone] Referring Provider: VANCE Jain LAUREL [address] [place], [address]. tel:[phone] Family History Family Member Type Diagnosis Age At Onset No Information Payers Payer name Insurance type Covered libertarian ID Authoriza tialeksander(s) [facility] [id number] Social History Type Description Quantity Date Captured Comments Sex Female Smoking Status No Information Chief Complaint And Reason For Visit No Information Reason For Referral Reason For Referral No Information History Of Present Illness Encounter Date Complaint History Of Prese nt Illness Widespread pain (comments) Claudy carpenter is here today for follow up and medication management. Presents without medications and is not prescribed opiates. 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 Patient is not accompanied today and has no other questions or concerns. Widespread pain Severity level i s 3. Duration: chronic. Location of the pain is lower back, mid back, upper back and bilateral shoulder. The patient describes it as throbbing and achy. It occurs persistently. The problem is fluctuating. Symptom is aggravated by bending, walking upstairs, walking downstairs, running, pulling, pushing, sitting, standing, turning head and raising arms. Relieving factors include heat, cold, Rx Meds, TENS Unit, Chiropractic and Changing positions. Widespread pain (comments) Claudy carpenter is here for initial consult for widespread pain, referred by Dr. Bentley Bowling. Pain began in January 2014 and has been gradually getting worse. The patient suffers from multiple sclerosis, so after her first relapse the pain became extreme. C/o both muscular and nerve related pain. Spasticity in legs, back, and neck. States back pain disrupts her sleep at night. Of note, patient has suffered from trauma and has anxiety as a result. Goes to multiple different types of therapy. The patient currently uses gabapentin and cannabis to treat her pain, with over 70% pain relief but is too sedating whn taken enough to really lower her pain. Patient has tried PT at [facility] from 09/16/2017 to 11/11/2017. This provided temporary pain relief. Patient denies trying injections for pain relief. Patient has also had diagnostic imaging completed (MRI) at [facility] and [facility]. Patient has tried massage therapy for pain relief, which provides 24hr-48hr relief. Patient is interested in all her options for pain relief. Inquires about PT and massage therapy. Denies need for medical cannabis certification at this time - states cannabis is not as beneficial as it used to be. Widespread pain Severity level i s 6. Duration: chronic. Location of the pain is lower back, mid back, upper back, neck, bilateral shoulder, bilateral knee, bilateral ankle, BL arms, BL feet, head and abdomen. The patient describes it as sharp, achy and burning. Associated symptoms include diarrhea and incontinence (urinary). Pertinent negatives include dyspnea and fever. Functional Status Date Functional Assessmen t No Information Instructions Date Instruction Additional Infor mation No Information Assessments Type Assessment Date No Information Patient Care Teams Name Effective Dates (start - stop) Status Members No Information
--- OUTSIDE RECORDS SUMMARY | 2021-12-12 11:12 | XMS_ITS | Continuity of Care Document ---
Author Organization [facility] Address [address] [place] [address] [place] [address] Phone Care Team Providers Care Cryptologic Technician Operator/Analyst Name Role Phone Will MD PENALOZA, Jered [...] Diagnoses Date Provider Providers Copied on Encounter [facility], [address] [facility] [place], [place], [id number] , [place] tel:[phone] [facility] [place] No Information 2 Will Jered. [address] [facility] [place], [place], [id number], [place]. tel:[phone] OFFICE/OUTPAT IENT VISIT, EST [facility], [address] [facility] [place], [id number] , [place] tel:[phone] [facility] [place] Widespread pain (chief complaint) Multiple sclerosisLow back painCervicalgiaOt her muscle spasmOther hereditary and idiopathic neuropathies 8 Eusebio Gil. [address] [facility] [place], [place], [id number], [place]. tel:[phone] Referring Provider: Bentley Bowling [facility] [address] [place], [address]. tel:[phone] OFFICE CONSULTATION [facility], [address] [facility] [address] [place], [place], [id number] , [place] [phone] [facility] Widespread pain (chief complaint) Low back painCervicalgiaOt her muscle spasmMyalgiaMulti ple sclerosis 8 Darell Ba. [address] [facility] [place], [address], [place]. tel:[phone] Referring Provider: VANCE Jain [place] [address] [place], [address]. tel:[phone] Family History Family Member Type Diagnosis Age At Onset No Information Payers Payer name Insurance type Covered republican ID Authoriza tialeksander(s) [facility] [id number] Social History Type Description Quantity Date Captured Comments Sex Female Smoking Status No Information Chief Complaint And Reason For Visit No Information Reason For Referral Reason For Referral No Information History Of Present Illness Encounter Date Complaint History Of Prese nt Illness Widespread pain Severity level i s 3. 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 Patient is not accompanied today and has no other questions or concerns. Widespread pain Severity level i s 6. Duration: chronic. Location of the pain is lower back, mid back, upper back, neck, bilateral shoulder, bilateral knee, bilateral ankle, BL arms, BL feet, head and abdomen. The patient describes it as sharp, achy and burning. Associated symptoms include diarrhea and incontinence (urinary). Pertinent negatives include dyspnea and fever. Widespread pain (comments) Claudy carpenter is here [...] her pain. Patient has tried PT at [facility] from 09/16/2017 to 11/11/2017. This provided temporary pain relief. Patient denies trying injections for pain relief. Patient has also had diagnostic imaging completed (MRI) at [facility] and [facility]. Patient has tried massage therapy for pain relief, which provides 24hr-48hr relief. Patient is interested in all her options for pain relief. Inquires about PT and massage therapy. Denies need for medical cannabis certification at this time - states cannabis is not as beneficial as it used to be. Functional Status Date Functional Assessmen t No Information Instructions Date Instruction Additional Infor mation No Information Assessments Type Assessment Date No Information Patient Care Teams Name Effective Dates (start - stop) Status Members No Information
--- OUTSIDE RECORDS SUMMARY | 2025-07-14 22:19 | XMS_ITS | Clinical Summary ---
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 Name Role Phone Bentley Bowling MD Primary Care Provider [phone] Shaye Varghese SIX PACK PACKER Unavailable [phone] Unavailable Soham Pace PsyD, LP Unavailable Toño Quarles RN Unavailable Jonas AARON MD, Soham Cruz Unavailable [phone] Allergies Active Allergy Reactions Criticality Noted Date Comments Atomoxetine Other - Describe In Comment Field High 07/02/2018 Suicidal ideation Became suicidal Banana Other - Describe In Comment Field,Throat Swelling/Closing,Itc trudy High 07/17/2017 Varenicline Other - Describe In Comment Field 09/19/2019 Worsening of mood Gluten Headache,GI Upset Medium 10/02/2020 Lactose Diarrhea,GI Upset Low 07/17/2017 Tetanus Toxoid, Adsorbed Other - Describe In Comment Field High 10/02/2020 numbness Medications rizatriptan (MAXALT) 10 mg tablet Take 10 mg at onset of headache. May repeat in 2 hours if unresolved. Do not exceed 30 mg in 24 hours. No more than 9 days per month 03/13/20 21 Active NaCl 0.9% solp 500 mL with ocrelizumab 30 mg/mL soln 600 mg Inject 600 mg intravenous one time. Active venlafaxine (EFFEXOR XR) 75 mg cp24 Extended-Release capsuleIndication s:Generalized anxiety disorder Take 1 Capsule (75 mg) by mouth once daily with a meal. Take with 300 mg for 375 mg total 60 Capsule 10/15/20 23 Active urea 20% topical 20 % creamIndications: Lichen simplex chronicus Apply thin coat to thickened patches on the left ankle twice daily. 75 g 1 11/12/19 24 Active ARIPiprazole (ABILIFY) 10 mg tabletIndications :Generalized anxiety disorder Take 1 Tablet (10 mg) by mouth once daily. 11/12/19 24 Active venlafaxine (EFFEXOR XR) 150 mg Extended-Release capsuleIndication s:Generalized anxiety disorder TAKE TWO CAPSULES BY MOUTH DAILY WITH EVENING MEAL ALONG WITH 75 MG CAP FOR TOTAL OF 375 MG 180 Capsule 1 12/11/19 24 Active pregabalin (LYRICA) 200 mg capsuleIndication s:MS (multiple sclerosis) (HC) Take 1 Capsule (200 mg) by mouth two times daily. 60 Capsule 01/13/20 24 Active multivitamin (MVI) tabletIndications :MS (multiple sclerosis) (HC) Take 1 Tablet by mouth once daily. 90 Tablet 3 02/25/20 24 Active doxazosin (CARDURA) 08/26/20 24 Active clindamycin phosphate 2 % gelIndications:Ba cterial vaginosis Insert into the vagina. Use after intercourse 8 g 3 09/13/20 24 Active baclofen 10 mg tabletIndications :MS (multiple sclerosis) (HC),Chronic back pain, unspecified back location, unspecified back pain laterality TAKE 2 TABLETS BY MOUTH IN THE MORNING AND 1 TABLET IN THE AFTERNOON 270 Tablet 3 09/28/20 24 Active terbinafine (LAMISIL) 1 % creamIndications: Tinea pedis, unspecified laterality Apply thin coat to feet twice daily x 2 weeks. Apply in sock distribution from ankle to toes, and in between toes. 28 g 3 10/13/20 24 Active omeprazole 20 mg tabletIndications :Chronic GERD Take 1 Tablet (20 mg) by mouth once daily before a meal. 90 Tablet 3 11/03/19 25 Active emtricitabine-ten ofovir, 200-300 mg, (Truvada) tabletIndications :Encounter for HIV pre-exposure prophylaxis Take 1 Tablet by mouth once daily. 90 Tablet 12/01/19 25 Active fluconazole (DIFLUCAN) 100 mg tabletIndications :Oropharyngeal candidiasis Take 200 mg on day 1, then 100 mg day 2-8 9 Tablet 01/07/20 25 Active Mydayis 37.5 mg capsule Take 50 mg by mouth once daily. 12/13/19 25 Active ammonium lactate 12 % creamIndications: Cracked skin on feet Apply topically to affected area(s) two times daily. 140 g 01/20/20 25 Active miscellaneous medical supply miscIndications:M S (multiple sclerosis) (HC) As directed. Shower Mat 1 Each 03/21/20 25 Active albuterol HFA (Ventolin HFA) 90 mcg/actuation inhalerIndication s:Mild persistent asthma without complication (HC) Inhale 1-2 Puffs by mouth every 4 hours if needed for Shortness Of Breath or Wheezing. 54 g 4 05/25/20 25 Active fluticasone propion-salmetero L (Advair Diskus) 500-50 mcg/Dose diskus inhalerIndication s:Obstructive lung disease (HC) Inhale 1 Puff by mouth two times daily. 180 Each 4 05/25/20 25 Active montelukast (SINGULAIR) 10 mg tabletIndications :Mild persistent asthma without complication (HC),Obstructive lung disease (HC) Take 1 Tablet (10 mg) by mouth once daily. 90 Tablet 4 05/25/20 25 Active Multivitamin Cmb No.21-Iron-FA (Certavite-Antiox idant) 18-400 mg-mcg tabIndications:Ta kes daily multivitamins Take 1 Tablet by mouth once daily. 90 Tablet 06/05/20 25 Active cholecalciferol (VITAMIN D3) 2,000 unit capsuleIndication s:Vitamin D deficiency TAKE ONE CAPSULE BY MOUTH ONE TIME DAILY 90 Capsule 2 06/04/20 25 Active hydrocortisone 2.5 % ointmentIndicatio ns:Dermatitis Apply topically to affected area(s) two times daily. Apply for up to 2 weeks, take a week off and repeat. 35 g 1 06/30/20 25 Active ondansetron (ZOFRAN ODT) 4 mg disintegrating tabletIndications :Nausea Place 1 Tablet (4 mg) on the tongue every 8 hours if needed for Nausea/Vomiting. 5 Tablet 07/10/20 25 Active naproxen (NAPROSYN) 500 mg tabletIndications :Sore throat Take 1 Tablet (500 mg) by mouth two times daily with meals for 14 days. 28 Tablet 07/10/20 25 025 Active magic mouthwash 1:1:1 (diphen 12.5mg/5mL-lidoca ine 2%-maalox 403-074-04vm/5ml) (AMB MIX)Indications:A phthous ulcer Swish and spit 5-10 mL by mouth 4 times daily if needed for Mouth Sores. 480 mL 07/14/20 25 Active valACYclovir (VALTREX) 1 gram tabletIndications :Gingivostomatiti s Take 1 Tablet (1 g) by mouth two times daily for 7 days. 14 Tablet 07/14/20 25 025 Active acetaminophen-cod eine 120-12 mg/5 mL solutionIndicatio ns:Gingivostomati tis Take 5-10 mL by mouth every 6 hours if needed for Pain. Max acetaminophen dose is 4000 mg in 24 hours. 118 mL 07/14/20 25 Active magic mouthwash 1:1:1 (diphen 12.5mg/5mL-lidoca ine 2%-maalox 255-654-14az/5ml) (AMB MIX)Indications:A phthous ulcer Swish and spit 5-10 mL by mouth 4 times daily if needed for Mouth Sores. 480 mL 07/13/20 25 025 Discontin ued(Reord er (E-cancel not sent)) Active Problems Problem Noted Date Diagnosed Date Tubo-ovarian abscess 05/27/2024 Morbid obesity with BMI of 40.0-44.9, adult 10/26 Obesity, Class II, BMI 35-39.9 08/12/2019 Controlled substance agreement signed 11/04/2018 Overview (11/04/2018): 11/03/18 signed Diann Ac MD/psychiatry PTSD (post-traumatic stress disorder) 09/03/2018 Attention deficit hyperactiv ity disorder (ADHD), combined type 07/02/2018 Borderline personality disorder 02/28/2018 Assessment & Plan (01/13/2023 10:25 AM CDT): Chart update only. KEENA Barros .................... 01/13/2023 10:25 AM Pap smear for cervical cancer screening 10/26/19 17 Overview (09/02/2022): 11/07/2016 LSIL 02/02/2018 NIL/HPV Negative 11/25/2018 ASCUS / HPV + 01/07/2019 [place]: suggestive of HPV (age 23) 03/04/2021 NIL 07/18/2022 NIL/HPV Negative Plan: Pap/HPV testing due in 5 years Depression 09/27/2014 Generalized anxiety disorder 09/27/2014 MS (multiple sclerosis) 05/18/2014 Resolved Problems Problem Noted Date Diagnosed Date Resolved Date Weight gain 05/01/2022 01/19/2025 Fatigue 05/01/2022 01/19/2025 Weight gain 08/12/2019 10/04/2020 Exercise intolerance 08/12/2019 020 Fatigue 08/12/2019 10/04/2020 Eating disorder 08/12/2019 10/04/2020 Irregular heartbeat 08/12/2019 10/04/20 20 Marijuana abuse 09/27/2014 09/03/2018 Varicella 10/24/2016 Hypertension 10/04/2020 Encounters Date Type Department Care Team Description 07/14/2025 Telephone [facility] [address] [place] [address] Bentley Bowling MD Pharmacist Medication Management 07/14/2025 Orders Only [facility] [address] [place] [address] Bentley Bowling MD <No scans attached> 07/13/2025 11:55 AM CDT Office Visit [facility] [address] [place] [address] Leann Cosme PA Throat Problem (throat blisters, cough, headache. sx started 1 week ago, blisters appearing 2 days ago) 07/13/2025 Travel 07/10/2025 3:05 PM CDT Office Visit [facility] [address] [place] [address] Bentley Bowling MD Throat Problem (4 days of a sore throat /Swollen glands on the left/); Cough (Started about 4 days ago) 07/09/2025 Travel 06/30/2025 9:15 AM CDT Telemedicine [facility] [address] [place] [address] Fernando Vee MD Derm Problem (Dry patch of skin on chin); Telehealth (No vitals) 06/28/2025 Travel 06/23/2025 Medical Messaging [facility] [address] [place] [address] Bentley Bowling MD PT orders 06/15/2025 9:25 AM CDT Office Visit [address] [address] Bentley Bowling MD STD (testing); Follow Up (skin); Letter (Live in aid ) 06/15/2025 Travel 06/12/2025 Travel 06/01/2025 Refill [facility] [address] [place] [address] Bentley Bowling MD Refill Request (Certavite-antioxida nt, Cholecalciferol) 05/25/2025 9:00 AM CDT Office Visit [facility] [address] [place] [address] Sonido Welch MD Follow Up (Asthma ) 05/24/2025 Travel 05/16/2025 Travel 05/08/2025 Medical Messaging [facility] [address] [place] [address] Bentley Bowling MD PT orders 04/13/2025 10:15 AM CDT Telemedicine [facility] [address] [place] [address] Bentley Bowling MD Hand Pain/problem (Palms of hands are peeling) 04/13/2025 Travel from Last 3 Months Immunizations Immunization Administration Dates Next Due COVID-19 VACCINE SPIKEVAX (M ODERNA 50MCG/0.5ML) 12YO+ PFS 11/03/2024,11/23/2023,09/24/2023 COVID-19 vaccine (Ever-J& J) PF, MDV 03/22/2021 COVID-19 vaccine (GurooBio NTech 30mcg/0.3mL) 12YO+ BIVALENT PF, MDV 10/14/2022 COVID-19 vaccine (Photometics-Bio NTech 30mcg/0.3mL) PF, MDV 09/10/2021 DT (Age < 7 years) 04/30/1998, 7,10/20/1996,1995 HPV 9 (Gardasil 9) 05/02/2022,09/10/2021, 021 Hepatitis B (Peds) 04/30/1998,05/30/1997, 996 Hib Conjugate, Unspecified 04/30/1998 MMR 04/30/1998 Oral Polio Vaccine 05/30/1997,10/20/1996, 996 Pneumococcal Conj 20-valent (Prevnar 20) 06/15/2025 Pneumococcal Poly,23-Valent (Pneumovax) 12/10/2021 Td, Preservative Free (age > = 7 Years) 04/01/2011 Family History Medical History Relation Name Comments Hypertension Brother 1 Obesity Brother 1 Obesity Brother 2 Other Brother 2 Hypoglycemic Allergies Brother 5 AJ Obesity Brother 5 AJ Other Brother 6 hypoglycemic Anxiety disorder Brother 7 Eric Depression Brother 7 Eric Good Health Brother 7 Eric Hypertension Brother 7 Eric Obesity Brother 7 Eric Good Health Brother 8 ADD / ADHD Brother 9 Rodrigo Anxiety disorder Brother 9 Rodrigo Depression Brother 9 Rodrigo OCD Brother 9 Rodrigo Anxiety disorder Brother 10 Other Brother 10 autistic Good Health Brother 11 Alcoholism Father Vicente Anxiety disorder Father Vicente Drug Abuse Father Vicente Hyperlipidemia Father Vicente Hypertension Father Vicente Obesity Father Vicente Other Father Vicente pre-diabetic Other Maternal Grandmother COD Janusz g Cancer Alcoholism Mother Jessica (Yimi) Anxiety disorder Mother Jessica (Yimi) COPD Mother Jessica (Yimi) Drug Abuse Mother Jessica (Yimi) Eating disorder Mother Jessica (Yimi) Osteoporosis Mother Jessica (Yimi) Pain Mother Jessica (Yimi) Unknown Mother Jessica (Yimi) Medical histor y for family largely unknown ADD / ADHD Sister 1 Sarah Anxiety disorder Sister 1 Sarah Eating disorder Sister 1 Sarah OCD Sister 1 Sarah Obesity Sister 1 Sarah Anxiety disorder Sister 2 Gill Obesity Sister 2 Gill Good Health Sister 3 Good Health Sister 4 Relation Name Status Comments Brother 1 Alive Brother 2 Alive Brother 3 Alive Brother 4 Alive Brother 5 AJ Alive Brother 6 Brother 7 Eric Brother 8 Brother 9 Rodrigo Brother 10 Brother 11 Brother 12 Alive Father Vicente Alive Maternal Grandmother (Age 52) Mother Jessica Godoy) Alive Sister 1 Sarah Alive Sister 2 Gill Alive Sister 3 Sister 4 Sister 5 Alive Social History Tobacco Use Types Packs/Day Years Used Date Smoking Tobacco: Former Cigarettes 0.7 1.1 0 04/02/2021 - 08/2023 Smokeless Tobacco: Never Tobacco Cessation:Counseling Given: Not Answered Alcohol Use Standard Drinks/Week Comments Never 0 (1 standard drink = 0.6 oz pur e alcohol) PHQ-2 Answer Date Recorded PHQ-2 TOTAL SCORE 2 05/27/2024 Social Connections Answer Date Recorded Do you often feel lonely or isolated from those around you? 4 01/02/2025 Alcohol Use Answer Date Recorded How often do you have a drink containing alcohol ? 0 07/10/2025 Average Number of Drinks Not on file 025 Frequency of Binge Drinking Not on file 06/26 Financial Resource Strain Answer Date R ecorded Difficulty of Paying Living Expenses 3 12/15/2024 Difficulty of Paying Living Expenses Not on file 12/15/2024 Food Insecurity Answer Date Recorded Do you worry your food will run out before you are able to buy more? 2 01/02/2025 Transportation Needs Answer Date Record ed Does lack of transportation keep you from medica l appointments? 1 01/02/2025 Does lack of transportation keep you from work, meetings or getting things that you need? 2 01/02/2025 Housing Stability Answer Date Recorded What is your housing situation today? 2 01/02/2025 Utilities Answer Date Recorded Do you have trouble paying f or utilities (for example, heat, electricity, water, phone)? 1 01/02/2025 Education Answer Date Recorded What is the highest level of school you have completed or the highest degree you have received? 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 Gender Identity nonbinary 03/02/2021 6:29 PM CDT Sexual Orientation Bisexual 03/02/2021 6: 29 PM CDT Occupation Industry Job Start Date Job End Date disabled Not on file Not on file Not on file Obstetrics History Para Term AB IAB SAB Ectopic Multiple Livin g Live Births 0 0 0 0 0 0 0 0 0 0 0 Last Filed Vital Signs Vital Sign Reading Time Taken Comments Blood Pressure 118/82 07/13/2025 12:00 PM CDT Pulse 97 07/13/2025 12:00 PM CDT Temperature 36.8 C (98.3 F) 07/13/2025 12:00 PM CDT Respiratory Rate 16 01/27/2017 9:37 AM CDT Oxygen Saturation 97% 07/13/2025 12:00 PM CDT Inhaled Oxygen Concentration - - Weight 104.3 kg (230 lb) 07/13/2025 12:00 PM CDT Height 156.2 cm (5' 1.5) 05/25/2025 9:06 AM CDT Body Mass Index 42.75 05/25/2025 9:06 AM CDT Plan of Treatment Upcoming Encounters Date Type Department Care Team (Late st Contact Info) Description 07/18/2025 11:20 AM CDT Office Visit [facility] [address] [place] [address] Bentley Bowling MD [address] [place] [address] Health Maintenance Due Date Last Done Comments Depression screening for age 12+ 2007 BMI (ht and wt on same day) for age 18+ 05/25/2026 05/25/2025, 12/22/2024, 03/11/2024, Additional history exists Pap test for age 21-65 07/18/2027 , 07/18/2022, 03/04/2021, Additional history exists RSV vaccine for adults or (1 - 1-dose 75+ series) 2070 Hepatitis B series for 19+ Completed 04/30, 05/30/1997, 10/20/1996 HPV series for age 9-45 Completed 05/02/20, 09/10/2021, 05/31/2021 HPV series for age 9-45 Completed 05/02/20, 09/10/2021, 05/31/2021 COVID-19 vaccine series Completed 11/03/19, 11/23/2023, 09/24/2023, Additional history exists HIV for age 15-65 Completed 06/15/2025, , 12/01/2024, Additional history exists Hepatitis C screening for ag e 18-79 Completed 06/15/2025, 03/14/2025, 12/01/2024, Additional history exists Pneumococcal series for age 6-49 Completed 06/15/20, 12/10/2021 Procedures Procedure Name Priority Date/Time Associated Diagnosis Comments THROAT RAPID STREP ONLY CLINIC Routine 07/10/2025 3:12 PM CDT Sore throat ANTI HIV 1/2 Routine 06/15/2025 10:23 AM CDT STD exposure GC CHLAMYDIA TRACH PROBE Routine 06/15/2025 10:23 AM CDT STD exposure HBSAG (HBS) Routine 06/15/2025 10:23 AM CDT STD exposure ANTI HCV Routine 06/15/2025 10:23 AM CDT STD exposure TREPONEMA PALLIDUM Routine 06/15/2025 10 :23 AM CDT STD exposure SURGICAL MANAGER THIN PREP PAP SCREEN IMAGED Routine 07/18/2022 4:50 PM CDT Cervical cancer screening from Last 3 Months or Most Recently Relevant to Health Maintenance Results * POCT Throat Rapid Strep (07/10/2025 3:12 PM CDT) POC, GROUP A STREP NOT DETECTED NOT DETECTED 07/10/2025 3:24 PM CDT [facility] Comment: The [place] [employer] recommends that a throat culture be performed if a rapid group A streptococcus assay yields a negative result. [email or web address] recommends Streptococcus, Group A culture. Throat SPECIMEN FROM THROAT / Unknown Non-Blood / Unknown 07/10/2025 3:12 PM CDT 07/10/2025 3:15 PM CDT Bentley Bowling MD MICROBIOLOGY Final Resu lt [facility] [address] [id number], [place] [address], * TREPONEMA PALLIDUM (06/15/2025 10:23 AM CDT) Pathologist [facility] TREPONEMA PALLIDUM Non-Reacti ve Non-Reacti ve 06/15/2025 3:49 PM CDT [facility] Blood BLOOD SPECIMEN / Unknown [facility] / Unknown 06/15/2025 10:23 AM CDT 06/15/2025 10:23 AM CDT Bentley Bowling MD SEND OUTS Final Resu lt [facility] [address] [place] [address], [place] * GC CHLAMYDIA TRACH PROBE (06/15/2025 10:23 AM CDT) CHLAMYDIA PROBE Negative 9:08 PM CDT [facility] N GONORRHOEAE PROBE Negative 06/15/2025 9:08 PM CDT [facility] Other URINE SPECIMEN / Unknown Non-Blood / Unknown 06/15/2025 10:23 AM CDT 06/15/2025 10:23 AM CDT Bentley Bowling MD MICROBIOLOGY Final Resu lt [facility] [address] [place] [address], * HBSAG (HBS) (06/15/2025 10:23 AM CDT) HEPATITIS B SURFACE ANTIGEN NON-REACT ALEJANDRO NON-REACT ALEJANDRO 06/16/2025 11:52 AM CDT [facility] Comment: For additional information, please refer to http://[email or web address]/faq/PKG051 (This link is being provided for informational/ educational purposes only.) Blood BLOOD SPECIMEN / Unknown [facility] / Unknown 06/15/2025 10:23 AM CDT 06/15/2025 10:23 AM CDT Bentley Bowling MD SEND OUTS Final Resu lt [facility] [address] [address], * ANTI HCV (06/15/2025 10:23 AM CDT) HEPATITIS C ANTIBODY NON-REACT ALEJANDRO NON-REACT ALEJANDRO 06/16/2025 11:52 AM CDT [facility] Comment: HCV antibody was non-reactive. There is no laboratory evidence of HCV infection. In most cases, no further action is required. However, if recent HCV exposure is suspected, a test for HCV RNA (test code 46016) is suggested. For additional information please refer to http://[email or web address]/faq/UQY62e2 (This link is being provided for informational/ educational purposes only.) Blood BLOOD SPECIMEN / Unknown [facility] / Unknown 06/15/2025 10:23 AM CDT 06/15/2025 10:23 AM CDT eBntley Bowling MD SEND OUTS Final Resu lt Performing Organization Address [facility] Co de Phone Number [facility] [address] [address], * ANTI HIV 1/2 (06/15/2025 10:23 AM CDT) HIV AG/AB, 4TH GEN NON-REACT ALEJANDRO NON-REACT ALEJANDRO 06/16/2025 11:52 AM CDT [facility] HIV FINAL INTERPRETATOIN SEE NOTE 06/16/2025 11:52 AM CDT [facility] Comment: HIV Negative HIV-1 antigen and HIV-1/HIV-2 antibodies were not detected. There is no laboratory evidence of HIV infection. Blood BLOOD SPECIMEN / Unknown [facility] / Unknown 06/15/2025 10:23 AM CDT 06/15/2025 10:23 AM CDT Bentley Bowling MD SEND OUTS Final Resu lt Performing Organization Address [facility] Co de Phone Number [facility] [address] [phone], * SURGICAL MANAGER THIN PREP PAP SCREEN IMAGED (07/18/2022 4:50 PM CDT) Case Report Gynecologic Cytology Report Case: [id number] Authorizing Provider: Bentley Bowling MD Collected: 07/18/2022 1650 Ordering Location: [facility] Received: 07/21/2022 0723 Clinic First Screen: Angelo Rocha Rescreen: Batsheva Nunez Specimen: SURGICAL MANAGER ThinPrep Vial Screening, Vagina 08/07/2022 2:09 PM CDT [facility]- ENTRAL LABORATORY INTERPRETATION/ RESULT NEGATIVE FOR INTRAEPITHELIAL LESION OR MALIGNANCY (NIL) (none) 08/07/2022 2:09 PM CDT [facility]-C ENTRAL LABORATORY at 1409 CDT ORGANISM(S) Shift in sean suggestive of bacterial vaginosis 08/07/2022 2:09 PM CDT [facility] SPECIMEN ADEQUACY Satisfactory for evaluation Endocervical component present 08/07/2022 2:09 PM CDT [facility] HPV REQUEST HPV and PAP 08/07/2022 2:09 PM CDT [facility] Date of LMP 06/18/22 08/07/2022 2:09 PM CDT [facility] Last Pap Date 03/04/21 08/07/2022 2:09 PM CDT [facility] Last Pap Result NIL 2:09 PM CDT [facility] Abnormal Pap or [place] Bx in last 5 years Yes 08/07/2022 2:09 PM CDT [facility] Menstrual Status Regular Periods 08/07/2022 2:09 PM CDT [facility] [place] Bx Done Today No 08/07/2022 2:09 PM CDT [facility] Additional Information None given 08/07/2022 2:09 PM CDT [facility] Comment: Cytology is screened at [facility] - [address], [place] [address] and [facility] - [address] [place] [address] and [facility] - [address] [place] [address] Interpreted at [facility] - [address], [place] [address] Automated Review Successful 08/07/2022 2:09 PM CDT [facility] Comment:Specimen processed s uccessfully by automated special crimes investigator device, ThinPrep Imaging System, [employer] ANCILLARY TESTING SURGICAL MANAGER HPV Ordered, Please see separate report 08/07/2022 2:09 PM CDT [facility] Note The pap test is a screening technique, not a diagnostic procedure. It is used primarily to screen for squamous cancers and precursor lesions. Published studies have shown that it is subject to both false negative and false positive results. The pap test should not be used as the sole means to diagnose or exclude pre-malignant and malignant lesions. 08/07/2022 2:09 PM CDT [facility]-C ENTRAL LABORATORY Other SPECIMEN FROM VAGINA / Unknown Non-Blood / Unknown 07/18/2022 4:50 PM CDT 07/21/2022 7:23 AM CDT us Bentley Bowling MD PATHOLOGY/CYTOLOGY Final R [facility] 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 Relationship Specialty Start Date End Date Bentley Bowling MD [address] [facility] [place] [address] PCP - General Family Practice 09/03/15 Shaye Varghese, MICK [address] [place] [address] Nurse Practitioner Clinical Nurse Specialist 07/22/[address] [place] [address] Registered Dietitian Cytotechnologist/Histotechnologist 07/22/19 Soham Pace PsyD, TEOFILO [address] [place] [address] Mental Health Associate Psychology 07/22/19 Toño Quarles, KIANA [address] [place] [address] Registered Nurse 05/01/22 Soham Mcdaniel III, MD [address] [place], [place] [address] Obstetrics and Gynecology 08/19/24
--- OUTSIDE RECORDS SUMMARY | 2025-07-14 22:19 | XMS_ITS | Clinical Summary ---
Author Organization [facility] Address [address] [place] [address] Care Team Providers Care Title Curative Specialist Name Role Phone Elsewhere, Pcp Primary Care Provider Unavailabl e Source Comments Patient records contain information from all sites at [facility]. For routine questions regarding patient records, call [phone] during business hours, M-F 8:00 AM - 5:00 PM Central Time. Record requests for emergency care only can be directed to [phone] at any time.[facility] Allergies Active Allergy Reactions Criticality Noted Date Comments Banana Itching Low 03/11/2021 Gluten GI intolerance Medium 10/02/2020 Lactose GI intolerance Low 10/02/2020 Atomoxetine Other (see comments) High 10/02/2020 Became suicidal Tetanus And Diphtheria Toxoids Other (see comments) High 08/02/2023 Tetanus Toxoid, Adsorbed Other (see comments) High 10/02/2020 numbness Varenicline Other (see comments) 09/19/2019 Worsening of mood Medications * This document contains information received from the source organization and may not represent a complete record from that organization. venlafaxine XR (EFFEXOR-XR) 150 mg 24 hr capsule Take 2 capsules (300 mg total) by mouth daily with breakfast. 60 capsule 11 1 Active rizatriptan (MAXALT) 10 mg tablet Take 10 mg at onset of headache. May repeat in 2 hours if unresolved. Do not exceed 30 mg in 24 hours. No more than 9 days per month 12 tablet 6 1 Active prazosin (MINIPRESS) 2 mg capsule Take 8 mg by mouth at bedtime. 3 Active pregabalin (LYRICA) 200 mg capsule Take 200 mg by mouth 2 (two) times a day. 3 Active venlafaxine XR (EFFEXOR-XR) 75 mg 24 hr capsule Take 75 mg by mouth daily. 375 mg total every morning 1 Active clobetasoL (TEMOVATE) 0.05 % cream Apply 1 Application topically 2 (two) times a day as needed. 3 Active urea (GORMEL) 20 % cream Apply 1 Application topically 2 (two) times a day as needed. 3 Active dextroamphetam ine-amphetamin e (ADDERALL) 10 mg tablet Take 10-20 mg by mouth daily. (In addition to AM dose of XR Adderall) 10 mg at noon 10 mg prn at 1600 Active ocrelizumab in NaCl 0.9% 250 mL IVPB Infuse into a venous catheter every 6 (six) months. 3 Active hydrOXYzine (VISTARIL) 50 mg capsule Take 50 mg by mouth 2 (two) times a day. May take additional 50 mg as needed 3 Active omeprazole (PriLOSEC OTC) [address] tablet Take 20 mg by mouth every morning before breakfast. 4 Active ARIPiprazole (ABILIFY) 10 mg tablet Take 1 tablet by mouth daily. 4 Active baclofen (LIORESAL) 10 mg tablet 10 mg. Active cholecalcifero l (VITAMIN D3) 50 mcg (2,000 Unit) tablet Take 1 tablet by mouth daily. 1 Active amphetamine-de xtroamphetamin e (Adderall XR) 30 mg 24 hr capsule Take 1 capsule by mouth daily. 4 Active acetaminophen (TYLENOL) 500 mg tablet Take 2 tablets (1,000 mg total) by mouth every 6 (six) hours as needed for pain. Alternate with ibuprofen every 3 hours. Do not exceed 4000 mg or 4 g in 24 hours. 4 Active ibuprofen (ADVIL,MOTRIN) 200 mg tablet Take 3 tablets (600 mg total) by mouth every 6 (six) hours as needed for pain. Alternate with acetaminophen every 3 hours. 4 Active Zepbound 2.5 mg/0.5 mL injection INJECT 2.5 MG UNDER THE SKIN ONCE WEEKLY X 4 WEEKS, THEN INCREASE TO 5 MG ONCE WEEKLY. THIS MEDICATION NEEDS TO BE STOPPED 2 WEEKS PRIOR TO ABDOMINAL SURGERY.* Active oxyCODONE (ROXICODONE) 5 mg immediate release tabletIndicati ons:Prolonged Acute Pain/Traumatic Injury Take 1 tablet (5 mg total) by mouth every 6 (six) hours as needed for moderate pain or score 4-6 of 10 Indication: Prolonged Acute Pain/Traumatic Injury. 3 tablet 4 Active Active Problems Problem Noted Date Diagnosed Date Gallstone 12/22/2023 Sterilization Elective 09/03/2023 Abscess Tubo Ovarian 08/05/2023 Multiple Sclerosis 03/22/2021 Conversion Disorder 03/22/2021 Abnormal Gait Non Orthopedic 03/22/2021 Posttraumatic Stress Disorder Prolonged 03/19/20 21 Borderline Personality Disorder 03/19/2021 Chronic Pain Syndrome 03/19/2021 Headache Unspecified 03/19/2021 Major Depressive Disorder, Recurrent, Unspecifie d 03/19/2021 Encounters Date Type Department Care Team Description 07/11/2025 Orders Only Department of Neurology in [place], [place] [address] [place] [address] Quirino Carreon, NURSE OFFICE, C.N.P., D.N.P. from Last 3 Months Immunizations Immunization Administration Dates Next Due 9vHPV 05/02/2022,09/10/2021,05/31/2021 DT, Pediatric 04/30/1998, 7,10/20/1996,1995 HepB, Unspecified 04/30/1998,05/30/1997,10/20/19 96 Hib, Unspecified 04/30/1998 MMR 04/30/1998 PPSV23 12/10/2021 Polio, Unspecified 05/30/1997,10/20/1996, 996 SARS-COV-2 (COVID-19) - TRAVIS GRIFFIN (J&J)(Discontinued) 03/22/2021 Td Preservative Free (TENIVA C, DECAVAC) 04/01/2011 Family History Medical History Relation Name Comments Anxiety disorder Brother 1 Eric Depression Brother 1 Eric Hypertension Brother 1 Eric Obesity Brother 1 Eric Psychiatric Brother 1 Eric OCD Suicide Attempts Brother 1 Eric Asthma Brother 2 AJ Obesity Brother 2 AJ Psychiatric Brother 2 AJ Autism ADD Brother 3 Rodrigo Anxiety disorder Brother 3 Rodrigo Depression Brother 3 Rodrigo Psychiatric Brother 3 Rodrigo Autism ADD Father Vicente Freeman Alcohol abuse Father Vicente Freeman Coronary artery disease Father Vicente Freeman Minor heart attack, 2015 Hypertension Father Vicente Freeman Lung cancer Maternal Grandmother Cindi Freeman 19 99 Alcohol abuse Mother Jessica Migraines Mother Jessica Psychiatric Mother Jessica Dissociative Id entity Disorder Anxiety disorder Sister 1 Gill Depression Sister 1 Gill Migraines Sister 1 Gill Obesity Sister 1 Gill Psychiatric Sister 1 Gill C-PTSD ADD Sister 2 Sarah Anxiety disorder Sister 2 Sarah Depression Sister 2 Sarah Migraines Sister 2 Sarah Psychiatric Sister 2 Sarah OCD, Pica, C-PT SD Cancer of vulva Neg Hx Cervical cancer Neg Hx Ovarian cancer Neg Hx Uterine cancer Neg Hx Relation Name Status Comments Brother 1 Eric Alive Brother 2 AJ Alive Brother 3 Rodrigo Alive Father Vicente Freeman Alive Maternal Grandmother Cindi Freeman Alive Mother Jessica Alive Sister 1 Gill Alive Sister 2 Sarah Alive Social History Tobacco Use Types Packs/Day Years Used Date Smoking Tobacco: Former Cigarettes 1 12 1 - 05/26/2022 Passive Smoke Exposure: Past Smokeless Tobacco: Never Tobacco Cessation:Ready to Q uit: Not Asked; Counseling Given: Not Answered Comments:I vape nicotine, but I no longer smoke Alcohol Use Standard Drinks/Week Comments Not Currently 0 (1 standard drink = 0.6 oz pure alcohol) Not sober, but I drink very very infrequently [facility] Utilities Answer Date Recorded In the past 12 months has e Cr[employer], gas, oil, or water [employer] threatened to shut off services in your home? No 02/11/2024 Humiliation, Afraid, Rape, and Kick questionnair e Answer Date Recorded Within the last year, have y ou been afraid of your partner or ex-partner? No 12/07/2022 Within the last year, have y ou been humiliated or emotionally abused in other ways by your partner or ex-partner? No Within the last year, have y ou been kicked, hit, slapped, or otherwise physically hurt by your partner or ex-partner? No 12/07/2022 Within the last year, have y ou been raped or forced to have any kind of sexual activity by your partner or ex-partner? No 12/07/2022 Hunger Vital Sign Answer Date Recorded Within the past 12 months, y ou worried that your food would run out before you got the money to buy more. Sometimes true Within the past 12 months, t he food you bought just didn't last and you didn't have money to get more. Often true PRAPARE - Transportation Answer Date Re corded In the past 12 months, has l ack of transportation kept you from medical appointments or from getting medications? No 01/24 In the past 12 months, has l ack of transportation kept you from meetings, work, or from getting things needed for daily living? Yes 02/11/2024 Depression Answer Date Recor ded PHQ-9 Total Score (max 27) 24 03/13 Housing Stability Answer Date Recorded What is your living situation today? I h ave a place to live today, but I am worried about losing it in the future 02/11/2024 Education Answer Date Recorded What is the highest level of school you have completed or the highest degree you have received? Some college, no degree 11/07/2020 Comments Unknown Sex and Gender Information Value Date Recorded Sex Assigned at Female 12/07/2022 11:51 AM BLOOD BANK WORKER Legal Sex Female 9:24 AM BLOOD BANK WORKER Gender Identity Nonbinary or Genderqueer 021 1:55 PM CDT Sexual Orientation Something else 12/07/2022 11 :51 AM BLOOD BANK WORKER Last Filed Vital Signs Vital Sign Reading Time Taken Comments Blood Pressure 123/85 07/29/2024 2:37 PM CDT Pulse 104 10/30/2024 3:02 PM BLOOD BANK WORKER Temperature 36.7 C (98.1 F) 07/29/2024 10:04 AM CDT Respiratory Rate 17 10/30/2024 3:02 PM BLOOD BANK WORKER Oxygen Saturation 96% 10/30/2024 3:02 PM BLOOD BANK WORKER Inhaled Oxygen Concentration - - Weight 102 kg (223 lb 15.8 oz) 12/31/2023 7:48 A M BLOOD BANK WORKER Height 157.5 cm (5' 2) 12/31/2023 7:48 AM BLOOD BANK WORKER Body Mass Index 40.97 12/31/2023 7:48 AM BLOOD BANK WORKER Plan of Treatment Health Maintenance Due Date Last Done Comments Cervical/Vaginal Cancer Screening 1995 Depression Monitoring (PHQ-9) 1995 IPV Vaccines (4 of 4 - 4-dos e series) 1999 05/30/1997, 10/20/1996, 07/07/1996 Hepatitis A Vaccines (1 of 2 - Risk 2-dose series) 2014 Zoster Vaccines (1 of 2) 2014 Pneumococcal vaccine (0-49 y ears) (2 of 2 - PCV) 12/10/2022 12/10/2021 Depression Monitoring (PHQ-9 for quality tracking) 10/26/2024 COVID-19 Vaccine (2023-2 5 season) 2025 11/03/2024, 11/23/2023, 09/24/2023, Additional history exists Influenza Vaccine (#1) 2025 Glucose Test for Med Monitoring 06/30/2025 06/30/2024, 08/06/2023, 08/05/2023, Additional history exists Tobacco Cessation counseling 01/27/2026 01/27/2025, 10/02/2020 Hepatitis B Vaccines Completed 04/30/1998, 05/30/1997, 10/20/1996 HPV Vaccines Completed 05/02/2022, 08/26, 05/31/2021 HIV Screening Completed 08/06/2023 Hepatitis C Screening Completed 08/06/2023 Hepatitis B Screening Discontinued 06/15/2025 , 12/01/2024, 04/20/2024, Additional history exists Medical Devices Implanted Type Area Edge Sander Device Identifier Shelf Expiration Date Model / Serial / Lot Clp Hmol Plmr Lg - [id number] Implanted:Qt y: 1 on 12/31/2023 by Toño Bennett M.D. at [facility] Hardware e.g. pins/screws /rods N/A: Abdomen [employer]x EzFlop - A First of Its Kind Flip Flop [id number] 07/13/2028 [id number] / / [id number] Clp Apr End Intnl Endo 5x11 - [id number] Implanted:Qt y: 1 on 12/31/2023 by Toño Bennett M.D. at [facility] Hardware e.g. pins/screws /rods N/A: Abdomen Medtronic [id number] / / Procedures Procedure Name Priority Date/Time Associated Diagnosis Comments HCV AB SCRN W/REFLEX TO HCV PCR, S Routine 08/06/2023 1:20 PM CDT HIV-1/-2 AG AND AB SCREEN, PLASMA Routine 08/06/2023 1:20 PM CDT HEPATITIS B SURFACE ANTIGEN Routine 08/06/2023 1:20 PM CDT BASIC METABOLIC PANEL, S/P Routine 08/06/2023 1:20 PM CDT from Last 3 Months or Most Recently Relevant to Health Maintenance Results * HIV-1/-2 Ag and Ab Screen, Plasma (08/06/2023 1:20 PM CDT) [facility] HIV-1/-2 Ag and Ab Screen, P Negative Negative 08/06/2023 9:00 PM CDT [facility] Comment: Negative result does not rule out HIV infection. If exposure to HIV infection occurred <14 days ago, contact the laboratory to request addition of HIV-1/HIV-2 RNA detection, Plasma (HIP12). Blood (Blood, Venous) 08/06/2023 1:20 PM CDT 08/06/2023 5:38 PM CDT us Talya Redmond M.D., M.S. LAB MICROBIOLOGY - BL OOD ORDERABLES Final Result [facility] [address] [place] [address] [facility] [address] [place] [address] * HCV Ab Scrn w/Reflex to HCV PCR, Serum (08/06/2023 1:20 PM CDT) HCV Ab Screen, S Negative Negative 08/06/2023 11:17 PM CDT [facility] Comment:Yysvgn-rh-uquzln rat io is <1.00. Blood (Blood, Venous) 08/06/2023 1:20 PM CDT 08/06/2023 4:37 PM CDT us Talya Redmond M.D., M.S. LAB MICROBIOLOGY - BL OOD ORDERABLES Final Result [facility] [address] [place] [address] [facility] [address] [place] [address] * (ABNORMAL) Basic Metabolic Panel (08/06/2023 1:20 PM CDT) Pathologist [facility] Potassium, S 3.5(L) 3.6 - 5.2 mmol/L 08/06/2023 2:20 PM CDT DTL Sodium, S 143 135 - 145 mmol/L 08/06/2023 2:20 PM CDT DTL Chloride, S 110(H) 98 - 107 mmol/L 08/06/2023 2:20 PM CDT DTL Bicarbonate, S 22 22 - 29 mmol/L 08/06/2023 2:20 PM CDT DTL Anion Gap 11 7 - 15 08/06/2023 2:20 PM CDT DTL BUN (Blood Urea Nitrogen), S 10 6 - 21 mg/dL 08/06/2023 2:20 PM CDT DTL Creatinine 0.71 0.59 - 1.04 mg/dL 08/06/2023 2:20 PM CDT DTL Estimated GFR (eGFR) >90 >=60 mL/min/BSA 08/06/2023 2:20 PM CDT DTL Comment: Estimated GFR calculated using the 2020 CKD_EPI creatinine equation. Calcium, Total, S 8.5(L) 8.6 - 10.0 mg/dL 08/06/2023 2:20 PM CDT DTL Glucose, S 92 70 - 140 mg/dL 08/06/2023 2:20 PM CDT DTL Blood (Blood, Venous) 08/06/2023 1:20 PM CDT 08/06/2023 1:56 PM CDT Talya Redmond M.D., M.S. LAB BLOOD ADD-ON Rosanna l Result [facility] [address] [place] [address], [facility] DTL [facility] [address] [place] [address] from Last 3 Months or Most Recently Relevant to Health Maintenance Additional Health Concerns Infection Onset Date Last Indicated Protective Environment 02/06/2023 3 Insurance MEDICA [facility] Advance Directives For more information, please contact: [phone] * Full Code (Latest Code Status on File) Date Activated Date Inactivated Comments 08/05/2023 8:22 PM 08/06/2023 7:34 PM Question Answer Comments Full Code: Not Discussed Due to: Patient not available Care Teams Title Curative Specialist Relationship Specialty Start Date End Date Elsewhere, Pcp PCP - General Internal Medicine 02/10/23
--- OUTSIDE RECORDS SUMMARY | 2025-07-14 22:19 | XMS_ITS | Encounter Summary ---
Author Organization [facility] Address [address] [place] [address] Care Team Providers Care Art Teacher Name Role Phone Elsewhere, Pcp Primary Care Provider Unavailabl e Encounter Details Date Type Department Care Team (Late st Contact Info) Description 07/11/2025 Orders Only Department of Neurology in [place], [place] [address] [place] [phone] Quirino Carreon, DWAYNE, C.N.P., D.N.P. [address] [place] [phone] Social History Tobacco Use Types Packs/Day Years Used Date Smoking Tobacco: Former Cigarettes 1 12 1 - 05/26/2022 Passive Smoke Exposure: Past Smokeless Tobacco: Never Comments:I vape nicotine, bu t I no longer smoke Alcohol Use Standard Drinks/Week Comments Not Currently 0 (1 standard drink = 0.6 oz pure alcohol) Not sober, but I drink very very infrequently [facility] Utilities Answer Date Recorded In the past 12 months has e electric, gas, oil, or water company threatened to shut off services in your [...] Sex Assigned at Female 12/07/2022 11:51 AM BLACKJACK DEALER Legal Sex Female 9:24 AM BLACKJACK DEALER Gender Identity Nonbinary or Genderqueer 021 1:55 PM CDT Sexual Orientation Something else 12/07/2022 11 :51 AM BLACKJACK DEALER documented as of this encounter Plan of Treatment Not on file documented as of this encounter Visit Diagnoses Not on filedocumented in this encounter Additional Health Concerns Infection Onset Date Last Indicated Resolved Time Protective Environment 02/06/2023 02/06/2023 Assessment Noted Time PHQ-9 Depression Total Score: 24 021 3:38 PM CDT documented as of this encounter Care Teams Art Teacher Relationship Specialty Start Date End Date Elsewhere, Pcp PCP - General Internal Medicine 02/10/23 documented as of this encounter
--- OUTSIDE RECORDS SUMMARY | 2025-07-14 22:19 | XMS_ITS | Clinical Summary ---
Author Organization [facility] Address [address] [place] [address] Care Team Providers Care Nurse Special Name Role Phone Bentley Bowling MD Primary Care Provider [phone] Marcia Leon PA-C Unavailable [phone] Allergies Active Allergy Reactions Criticality Noted Date Comments Atomoxetine Anxiety,Confusion,O ther High 07/02/2018 Other Reaction(s): Other (see comments) Suicidal ideation Became suicidal Became suicidal Banana Itching,Other,Swell ing, lips/tongue High 07/17/2017 Gluten Vomiting Medium 10/02/2020 Other Reaction(s): GI intolerance, Headache Lactose Diarrhea,Vomiting Low 07/17/2017 Other Reaction(s): GI intolerance Tetanus And Diphtheria Toxoids High 08/02/2023 Other Reaction(s): Other (see comments) Tetanus Toxoid, Adsorbed Other High 10/02/2020 Other Reaction(s): Other (see comments) numbness Varenicline Anxiety,Other 10/26/2018 Other Reaction(s): Other (see comments) Worsening of mood Medications acetaminophen (TYLENOL) 500 mg oral tablet Take 2 tablets (1,000 mg) by mouth every 6 (six) hours as needed. 4 Active albuterol HFA (PROVENTIL;VENT WAI HFA) 90 mcg/actuation Inhl inhaler Inhale 1-2 puffs every 4 (four) hours as needed. 5 Active ammonium lactate 12% (LAC-HYDRIN) 12 % Top cream cream Apply to skin twice a day. 5 Active ARIPiprazole (ABILIFY) 10 mg oral tablet TAKE ONE TABLET BY MOUTH ONE TIME DAILY* Active baclofen (LIORESAL) 10 mg oral tablet Take by mouth. 4 Active Cholecalciferol , Vitamin D3, 50 mcg (2,000 unit) oral capsule Take 2,000 Units by mouth Daily. 4 Active MYDAYIS 37.5 mg oral CT24 Take 50 mg by mouth Daily. 5 Active doxazosin (CARDURA) 2 mg oral tablet Take 1 tablet by mouth every night at bedtime along with 8 mg tablet* 5 Active doxazosin (CARDURA) 8 mg oral tablet 5 Active emtricitabine-t enofovir (TRUVADA) 200-300 mg oral tablet TAKE ONE TABLET BY MOUTH ONE TIME DAILY* Active fluticasone 500 mcg-salmeterol 50 mcg (ADVAIR) 500-50 mcg/dose Inhl DsDv diskus inhaler INHALE ONE PUFF BY MOUTH TWICE DAILY* Active ibuprofen (ADVIL;MOTRIN) 200 mg oral tablet Take 3 tablets (600 mg) by mouth every 6 (six) hours as needed. 4 Active montelukast (SINGULAIR) 10 mg oral tablet Take 1 tablet (10 mg) by mouth Daily. 5 Active CERTAVITE-ANTIO XIDANT 18-400 mg-mcg oral tablet TAKE ONE TABLET BY MOUTH ONE TIME DAILY* 5 Active omeprazole (PRILOSEC) 20 mg oral delayed release capsule 5 Active Pregabalin 200 mg oral capsule TAKE ONE CAPSULE BY MOUTH TWICE DAILY* Active terbinafine HCL (LAMISIL) 1 % Top cream Apply thin coat to feet twice daily x 2 weeks. Apply in sock distribution from ankle to toes, and in between toes. 4 Active venlafaxine ER (EFFEXOR XR) 150 mg oral extended release capsule 24 HR Take by mouth. 4 Active venlafaxine ER (EFFEXOR XR) 75 mg oral extended release capsule 24 HR TAKE ONE CAPSULE BY MOUTH EVERY DAY DIRECTED* Active clindamycin phosphate 2 % Vagl Gel Insert intravaginally. 4 Active hydrOXYzine HCl (ATARAX) 50 mg oral tablet TAKE ONE TABLET BY MOUTH TWICE DAILY NEEDED FOR PANIC/ANXIETY.* 5 Active multivitamin oral tablet Take 1 tablet by mouth Daily. 4 Active OCREVUS 30 mg/mL IV Soln 5 Active Active Problems Problem Noted Date Diagnosed Date Gallstone 12/22/2023 Morbid obesity with body mass index of 40.0-44.9 in adult 11/04/2023 Tubo-ovarian abscess 08/05/2023 Abnormal gait 03/22/2021 Conversion disorder 03/22/2021 Chronic pain syndrome 03/19/2021 Headache 03/19/2021 Major depressive disorder, recurrent, unspecifie d 03/19/2021 Attention deficit hyperactiv ity disorder (ADHD), combined type 07/02/2018 Borderline personality disorder 02/28/2018 Depression 09/27/2014 Generalized anxiety disorder 09/27/2014 Multiple sclerosis, relapsing-remitting 05/18/20 14 Encounters Date Type Department Care Team Description 05/19/2025 9:00 AM CDT Virtual Visit [facility] [address] [place] [phone] Marcia Leon PA-C Multiple sclerosis, relapsing-remitting (HCC) (Primary Dx) from Last 3 Months Family History Medical History Relation Comments Allergies Brother 1 Asthma Brother 1 Autism Brother 1 Mental Illness Brother 1 Migraines Brother 1 Obesity Brother 1 Autism Brother 2 Depression Brother 2 Mental Illness Brother 2 Depression Brother 3 Mental Illness Brother 3 Obesity Brother 3 Alcohol Abuse Father Mental Illness Father Obesity Father Lung Cancer Maternal Grandmother 2 Mental Illness Maternal Grandmother 2 Alcohol Abuse Mother 2 Allergies Mother 2 Asthma Mother 2 Mental Illness Mother 2 Migraines Mother 2 Obesity Mother 2 Depression Sister 1 Mental Illness Sister 1 Migraines Sister 1 Depression Sister 2 Mental Illness Sister 2 Migraines Sister 2 Obesity Sister 2 Relation Status Comments Brother 1 Brother 2 Brother 3 Father Maternal Grandmother 1 Maternal Grandmother 2 Mother 1 Mother 2 Sister 1 Sister 2 Social History Tobacco Use Types Packs/Day Years Used Date Smoking Tobacco: Former Cigarettes 1.5 13 0 10/26/2009 - 10/26/2022 Smokeless Tobacco: Never Tobacco Cessation:Counseling Given: Not Answered Alcohol Use Standard Drinks/Week Comments Not Currently 0 (1 standard drink = 0.6 oz pure alcohol) VERY OCCASIONAL, USUALLY LESS THAN 2 DRINKS Comments Unknown Sex and Gender Information Value Date Recorded Sex Assigned at Not on file Legal Sex Female 8:53 AM CDT Gender Identity Not on file Sexual Orientation Not on file Last Filed Vital Signs Vital Sign Reading Time Taken Comments Blood Pressure 140/88 04/06/2025 1:51 PM CDT Pulse 80 04/06/2025 1:51 PM CDT Temperature 36.6 C (97.8 F) 04/06/2025 1:51 PM CDT Respiratory Rate 16 04/06/2025 1:51 PM CDT Oxygen Saturation 96% 04/06/2025 1:51 PM CDT Inhaled Oxygen Concentration - - Weight 102.1 kg (225 lb) 02/15/2025 9:01 AM CDT Height 157.5 cm (5' 2) 02/15/2025 9:01 AM CDT Body Mass Index 41.15 02/15/2025 9:01 AM CDT Plan of Treatment Health Maintenance Due Date Last Done Comments Pap Smear 1995 Anxiety Follow-Up (SUSANNA-7) 1996 Depression Follow-Up (PHQ-9) 1996 Adult Tetanus Booster 04/01/2021 04/01/2011 Pneumococcal Vaccine (2 of 2 - PCV) 12/10/2022 12/10/2021 Influenza Vaccine (#1) 2025 RSV Vaccines (1 - 1-dose 75+ series) 2070 HPV Vaccine Completed 05/02/2022, 08/26, 05/31/2021 COVID-19 Vaccine Completed 11/03/2024, , 09/24/2023, Additional history exists Hepatitis C Screening Completed 03/14/2025, 025 Meningococcal B Vaccine Aged Out No l onger eligible based on patient's age to complete this topic Insurance BCBS OUT OF STATE COMMERCIAL MEDICA SNBC/MSC Care Teams Nurse Special Relationship Specialty Start Date End Date Bentley Bowling MD [address] [place] [id number] PCP - General Family Medicine 02/09/25 Marcia Leon PAHumbertoC [address] [facility] [address] [place] [address] Neurology 02/09/25
[2025-07-14 22:23] VITALS: BP 136/84; PULSE 105; RESP 20; TEMP 36.1; O2SAT 96
--- NOTE | 2025-07-14 22:47 | ED.GENADULT ---
HPI - General Adult General Chief complaint: Nausea/Vomiting Stated complaint: Throat blisters, vomiting Time Seen by Provider: 07/14/25 22:47 History of Present Illness HPI narrative: pt has been dealing with mouth and throat sores since Thursday or Thursday, has been given prescription for magic mouthwash but pharmacy unable to make it, also was given tylenol with codeine but was unable to get her pharmacy to fill, pain in throat and unable to keep anything down due to vomiting 29-year-old young woman presenting to the emergency department with concern painful sores in mouth making difficult to swallow. Was seen in urgent care couple of days ago. Has not been able to get the prescribed medication which included Magic mouthwash as well as Tylenol codeine. She does have Zofran at home along with naproxen. Three days ago had a negative strep test per report. Did receive a dose of dexamethasone in urgent care. Question was raised whether not that might have made her worse. History of multiple sclerosis with some immunosuppression she notes. Has been vomiting as she tries to swallow. Thinks vomiting is related to a sore on ?my fucking uvula?. Tried some Chloraseptic today with temporary relief. No fever. No rashes elsewhere. Accompanied here by stepfather? Related Data Home Medications ?Medication ?Instructions ?Recorded ?Confirmed aripiprazole 10 mg tablet 10 mg PO DAILY 08/02/23 07/14/25 baclofen 10 mg tablet 10 mg PO 3XD 08/02/23 07/14/25 dextroamphetamine-amphetamine 10 1 tab PO BID 08/02/23 07/14/25 mg tablet hydroxyzine pamoate 50 mg capsule 50 mg PO BID PRN 08/02/23 07/14/25 pregabalin 200 mg capsule 200 mg PO BID 08/02/23 07/14/25 venlafaxine 150 mg 300 mg PO DAILY 08/02/23 07/14/25 capsule,extended release 24 hr venlafaxine 75 mg capsule,extended 75 mg PO DAILY 08/02/23 07/14/25 release 24 hr doxazosin 8 mg tablet 8 mg PO QPM 07/12/25 07/14/25 Allergies Allergy/AdvReac Type Severity Reaction Status Date / Time atomoxetine (From Strattera) Allergy Severe Verified 07/12/25 15:33 tetanus and diphtheria Allergy Severe Numbness Verified 07/12/25 15:33 toxoids varenicline (From Chantix) Allergy Verified 07/12/25 15:33 Review of Systems Status of ROS: Reports: 6 or more systems reviewed and unremarkable except as noted in History and below [facility] Medical History Dysuria ?R30.0 - Dysuria (ICD-10) Abdominal pain ?R10.9 - Unspecified abdominal pain (ICD-10) Social History What is your current living situation?: I presently have a place to live Problems where you live: no known problems Problems where you live details: N/A In the past 12 months, utilities in danger of being shut off: no In past 12 months, lack of transportation kept you from medical appts, meetings, work, or getting things needed for daily living: yes In the past 12 mos, have been you worried that your food would run out before you had money to buy more?: sometimes true In the past 12 mos, the food you bought just didn't last and you didn't have money to buy more?: sometimes true Highest level of school completed/degree received: some college, no degree Smoking Status: Current every day smoker Do you use any of these nicotine containing products: Vaping Products Nicotine containing products detail: Vape How often do you have a drink containing alcohol: never How often do you have six or more drinks on one occasion: Never AUDIT-C Alcohol total score: 0 Non-prescribed substance use: marijuana (any form) Non-prescribed substance use details: Marijuana for pain Caffeine: Yes How often does anyone, including family, friends and others, physically hurt you: never How often does anyone, including family, friends and others, insult or talk down to you: sometimes How often does anyone, including family, friends and others, threaten you with harm: rarely How often does anyone, including family, friends and others, scream or curse at you: sometimes service: No Health Related Social Needs: food insecurity (Z59.41), transportation insecurity (Z59.82) and Other personal risk factors, not elsewhere classified (Z91.89) Exam Narrative: Exam Narrative: Pleasant. NAD. Does sound as though throat is painful; hurts to talk. Is managing secretions. Skin is warm and dry without apparent rash. Oropharynx is moist with a number of blisters over the soft palate and toward the uvula. Small anterior cervical lymphadenopathy. Lungs with trace inspiratory stridor with initial inhalation left upper and right lower. Otherwise clear. Heart in elevated rate and regular rhythm without murmur rub or gallop. Const: Vital Signs, click to edit/add: Vital Signs - 24 hr 07/14/25 22:23 07/15/25 00:53 Temperature 97.0 F L Pulse Rate [Right Pulse Oximeter] 105 H 96 Respiratory Rate 20 18 Blood Pressure [Ri ght Upper Arm] 136/84 134/82 Pulse Oximetry 96 97 Oxygen Delivery Me thod Room Air Room Air Documenting provider has reviewed patient's vital signs: yes Course Vital Signs Vital signs: Initial Vital Signs Temperature 97.0 F L 07/14/25 22:23 Temperature Source Temporal Artery Scan 07/14/25 22:23 Pulse Rate 105 H 07/14/25 22:23 Respiratory Rate 20 07/14/25 22:23 Blood Pressure 136/84 07/14/25 22:23 Blood Pressure Mean 101 07/14/25 22:23 Blood Pressure Position Sitting 07/14/25 22:23 Pulse Oximetry 96 07/14/25 22:23 Oxygen Delivery Method Room Air 07/14/25 22:23 Vital Signs Temperature 97.0 F L 07/14/25 22:23 Pulse Rate 105 H 07/14/25 22:23 Respiratory Rate 20 07/14/25 22:23 Blood Pressure 136/84 07/14/25 22:23 Pulse Oximetry 96 07/14/25 22:23 Oxygen Delivery Method Room Air 07/14/25 22:23 Temperature 97.0 F L 07/14/25 22:23 Pulse Rate 96 07/15/25 00:53 Respiratory Rate 18 07/15/25 00:53 Blood Pressure 134/82 07/15/25 00:53 Pulse Oximetry 97 07/15/25 00:53 Oxygen Delivery Method Room Air 07/15/25 00:53 Medications Administered Medications: Discontinued Medications Generic Name Dose Route Start Last Admin Trade Name Freq PRN Reason Stop Dose Admin Benzocaine 1 each 07/14/25 22:58 07/14/25 23:24 Benzocaine 20 % Fedora PO 07/14/25 22:59 1 each ONCE ONE Administration Benzocaine 1 each 07/15/25 00:35 07/15/25 00:42 Benzocaine 20 % Fedora PO 07/15/25 00:36 1 each ONCE ONE Administration Sodium Chloride 1,000 mls @ 1,000 mls/hr 07/14/25 22:58 07/15/25 00:44 0.9 % Sodium Chloride 1000 Ml IV 07/14/25 23:57 Infused .Q1H ONE Infusion Ketorolac Tromethamine 30 mg 07/14/25 22:58 07/14/25 23:24 Ketorolac 30 Mg/Ml Inj IVP 07/14/25 22:59 30 mg ONCE ONE Administration Ondansetron HCl 4 mg 07/14/25 22:58 07/14/25 23:24 Ondansetron 2 Mg/Ml Inj IVP 07/14/25 22:59 4 mg ONCE ONE Administration Promethazine HCl 12.5 mg 07/15/25 00:13 07/15/25 00:56 Promethazine 25 Mg/Ml Inj IVP 07/15/25 00:14 Not Given ONCE ONE Medical Decision Making MDM Narrative Medical decision making narrative: She would appreciate some IV fluids at this point along with some pain control. Appears to have stomatitis; likely viral etiology. Was negative for strep though this does not look like strep. Does not appear to be mono either; without tonsillitis. IV is initiated. Ordered for a L normal saline, ketorolac and Zofran. In particular wanted some numbing to her throat if possible. Did order benzocaine spray. Overall was improved on reassessment. Is looking forward to eating some burgers but anxious about return of her throat pain. Did supply with another dose for home. Did have brief recurrence of nausea treated with promethazine. Does not have so much swelling that I would treat with oral prednisone as well as expressed concerns of immunosuppression. See patient discharge plan for further discussion Continue to focus on hydration. Burgers seem maybe a little bit of a stretch but, as you wish :) Otherwise consider soup and Jell-O. Take this repeat dosing of benzocaine anesthetic with you if needed. Hopefully you can get this magic mouthwash soon. Can take up to 800 mg of ibuprofen or up to 1000 mg of acetaminophen per dose. Alternative to the ibuprofen as you are doing, could be up to 500 mg of naproxen 2 times daily. Since you had not managed to get the original prescription Tylenol (acetaminophen) with codeine, I am writing for a substitute prescription from [facility]. Each tablet contains 300 mg of acetaminophen and 30 mg of codeine. Be aware of maximum single dosing of acetaminophen as noted above and that codeine, as an opiate, can be sedating and constipating. Medical Records Medical records reviewed: Yes I reviewed the patient's medical records Discharge Plan Discharge Clinical Impression: Stomatitis, Vomiting Patient Disposition: Home w/ Parent or Adult Condition: Improved Additional Instructions: Continue to focus on hydration. Burgers seem maybe a little bit of a stretch but, as you wish :) Otherwise consider soup and Jell-O. Take this repeat dosing of benzocaine anesthetic with you if needed. Hopefully you can get this magic mouthwash soon. Can take up to 800 mg of ibuprofen or up to 1000 mg of acetaminophen per dose. Alternative to the ibuprofen as you are doing, could be up to 500 mg of naproxen 2 times daily. Since you had not managed to get the original prescription Tylenol (acetaminophen) with codeine, I am writing for a substitute prescription from [facility]. Each tablet contains 300 mg of acetaminophen and 30 mg of codeine. Be aware of maximum single dosing of acetaminophen as noted above and that codeine, as an opiate, can be sedating and constipating. Prescriptions: No Action baclofen 10 mg tablet 10 mg PO 3XD dextroamphetamine-amphetamine 10 mg tablet 1 tab PO BID Patient Comments: only takes on Tuesdays,wednesdays, and venlafaxine 150 mg capsule,extended release 24hr 300 mg PO DAILY venlafaxine 75 mg capsule,extended release 24hr 75 mg PO DAILY hydroxyzine pamoate 50 mg capsule 50 mg PO BID PRN pregabalin 200 mg capsule 200 mg PO BID aripiprazole 10 mg tablet 10 mg PO DAILY doxazosin 8 mg tablet 8 mg PO QPM Follow Up/Referrals: Bentley Bowling MD [Primary Care Provider, Family Practice] Stand Alone Forms: SubC Control Info Instructions
[2025-07-14] MEDS: BENZOCAINE 20 % SPRAY 1 EACH PO (23:24)
[2025-07-14] MEDS: ONDANSETRON 2 MG/ML inj 4 MG IVP (23:24)
[2025-07-15] MEDS: BENZOCAINE 20 % SPRAY 1 EACH PO (00:42)
[2025-07-15 00:53] VITALS: BP 134/82; PULSE 96; RESP 18; O2SAT 97
--- NOTE | 2025-07-15 00:56 | ED.NURSE ---
pt declined med, states she is feeling better.
== END 2025-07-15 00:54 | disposition home or self-care (01) ==
PROVIDERS: Emergency Provider Family Medicine; PCP Surgery
DX: K12.1 Other forms of stomatitis (principal); R11.10 Vomiting, unspecified; F17.290 Nicotine dependence, other tobacco product, uncomplicated
CPT/HCPCS: 96361; 96374; 96375; 99284; A9270; J1885; J2405; J7030